=== PATIENT | female | born 1985 | race Caucasian/White ===

== ENCOUNTER → 2016-05-27 | Outpatient (CLI) | payer BC | LOC: LABMAIN 23:24 | PROVIDERS: ATTEND Physician Assistant | DX: Z32.00 Encounter for pregnancy test, result unknown (principal) | CPT/HCPCS: 36415; 84702 ==

== ENCOUNTER → 2016-05-29 | Outpatient (CLI) | payer BC | LOC: LABWHC1 12:26 | PROVIDERS: ATTEND Obstetrics & Gynecology | DX: N92.5 Other specified irregular menstruation (principal) | CPT/HCPCS: 36415; 84702 ==

== ENCOUNTER → 2016-06-12 | Outpatient (CLI) | payer BC | END | disposition home or self-care (01) | LOC: LABWHC1 13:33 | PROVIDERS: ATTEND Obstetrics & Gynecology | DX: O20.0 Threatened abortion (principal) | CPT/HCPCS: 36415; 84702 ==

== ENCOUNTER → 2016-06-14 | Outpatient (CLI) | payer BC | END | disposition home or self-care (01) | LOC: LABWHC1 08:54 | PROVIDERS: ATTEND Obstetrics & Gynecology | DX: O20.0 Threatened abortion (principal) | CPT/HCPCS: 36415; 84702 ==

== ENCOUNTER 2016-08-07 07:26 | Outpatient (CLI) | payer BC ==
[2016-08-07] MEDS ORDERED: HYDROCORTISONE SUCCINATE 100 MG/2 ML VIAL IV STA (07:45)
[2016-08-07] MEDS: LACTATED RINGERS 1,000 ML IV SCH ×2 (07:56→09:08)
[2016-08-07 07:59] VITALS: BP 101/67; PULSE 96; RESP 16; TEMP 97.7
[2016-08-07] MEDS ORDERED: PROMETHAZINE INJ 25 MG in SODIUM CHLORIDE 0.9% 50 ML IVPB ONE (08:00)
[2016-08-07] MEDS ORDERED: HYDROCORTISONE SUCCINATE 100 MG/2 ML VIAL IV ONE (12:00)
== END 2016-08-07 12:26 | disposition home or self-care (01) ==
LOC: FBPOP 07:26
PROVIDERS: ATTEND Obstetrics & Gynecology
DX: O26.92 Pregnancy related conditions, unspecified, second trimester (principal); Z3A.14 14 weeks gestation of pregnancy
CPT/HCPCS: 96376; 99214; 96360; 96361; 96375; J2550; J1720

== ENCOUNTER 2016-09-23 16:55 | Outpatient (CLI) | payer BC ==
[2016-09-23] MEDS ORDERED: LACTATED RINGERS 1,000 ML IV SCH (17:15)
[2016-09-23] MEDS ORDERED: BUTORPHANOL 1 MG/ML 1 ML VIAL IV PRN (17:36)
[2016-09-23] MEDS ORDERED: HYDROCORTISONE SUCCINATE 100 MG/2 ML VIAL IV SCH (18:00)
[2016-09-23 18:53] VITALS: BP 134/74; PULSE 95; RESP 18; TEMP 98.2
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
== END 2016-09-23 18:10 | disposition home or self-care (01) ==
LOC: FBPOP 16:55
PROVIDERS: ATTEND Obstetrics & Gynecology
DX: O26.92 Pregnancy related conditions, unspecified, second trimester (principal); Z3A.21 21 weeks gestation of pregnancy
CPT/HCPCS: 99214; 96360; 96375; 86900; 86901; 86850; J1720; J0595; 96374

== ENCOUNTER 2016-09-23 18:20 | Emergency (ER) | payer BC ==
[2016-09-23 18:30] VITALS: RESP 18; TEMP 97.8
[2016-09-23] MEDS ORDERED: MORPHINE SULFATE 4 MG/ML SYRINGE IV STA (18:44)
[2016-09-23] MEDS ORDERED: Rhogam IMMUNE GLOBULIN 1,500 UNIT/1 ML IM ONE (18:45)
--- NOTE | 2016-09-23 18:50 | ED ---
General Adult HPI - General Chief complaint: Fall Stated complaint: fall Time Seen by Provider: 09/23/16 18:33 Source: patient, RN notes reviewed Mode of arrival: wheelchair Limitations: no limitations - History of Present Illness Initial comments: Patient is a pleasant 31-year-old female presenting to the emergency department following a fall. Fall occurred around 3:30 in the morning. Patient stepped over a baby gait and missed the second step. Patient then fell down several steps. Patient did strike her head and lost consciousness. Patient believes loss of consciousness was less than a minute. Patient does have some discomfort of her posterior head. Patient has some discomfort bilateral ribs. Patient has noticed some mild brown vaginal discharge. Patient is approximately 21 weeks . Patient does have a history of adrenal insufficiency. Patient did vomit a couple of times this morning following the injury. Patient is 3 para 2. Case was discussed with Dr. pierre who was involved in the case to patient coming to the emergency department. She did speak with Dr. Rausch at [facility] who did recommend steroid dose as well as second steroid dose. She also does recommend patient received program. They did monitor the baby up in labor and delivery and did not feel patient needs further monitoring. - Related Data Home Medications Medication Instructions Recorded Confirmed Hydrocortisone [Cortef] 10 mg PO QAM 09/25/13 09/23/16 Ift-Yywn-Nwjxt Acid 1 tab PO DAILY 09/25/13 09/23/16 [-U Capsule (formulary)] Hydrocortisone [Cortef] 5 mg PO BID@1200,1500 09/23/16 09/23/16 Levothyroxine Sodium [Synthroid] 75 mcg PO DAILY 09/23/16 09/23/16 Previous Rx's Medication Instructions Recorded Acetaminophen-Codeine 300-30mg 1 each PO Q4H PRN #12 tablet 09/23/16 [Tylenol #3] Allergies Allergy/AdvReac Type Severity Reaction Status Date / Time venom-honey bee Allergy Severe Anaphylaxis Verified 09/23/16 18:27 [bee venom (honey bee)] Review of Systems ROS Statement: Those systems with pertinent positive or pertinent negative responses have been documented in the HPI. ROS Other: All systems not noted in ROS Statement are negative. Constitutional: Denies: fever Eyes: Denies: eye pain ENT: Denies: ear pain Respiratory: Denies: cough Cardiovascular: Reports: chest pain Endocrine: Denies: fatigue Gastrointestinal: Reports: vomiting (Resolved). Denies: abdominal pain Genitourinary: Reports: discharge (Mild light brown). Denies: dysuria Skin: Reports: other (Abrasion) Neurological: Reports: headache. Denies: weakness, confusion Past Medical History Past Medical History: Asthma, Thyroid Disorder Additional Past Medical History / Comment(s): adreanal insufficiency, right hydronephrosis History of Any Multi-Drug Resistant Organisms: None Reported Past Surgical History: Appendectomy, Cholecystectomy, Joint Replacement Additional Past Surgical History / Comment(s): right total shoulder Past Anesthesia/Blood Transfusion Reactions: Motion Sickness Past Psychological History: No Psychological Hx Reported Smoking Status: Never smoker Past Alcohol Use History: None Reported Past Drug Use History: None Reported - Past Family History Mother Family Medical History: Hypertension General Exam Limitations: no limitations General appearance: alert, in no apparent distress Head exam: Present: other (Mild tenderness posterior scalp) Eye exam: Present: normal appearance, PERRL, EOMI ENT exam: Present: normal oropharynx Neck exam: Present: normal inspection, full ROM. Absent: tenderness Respiratory exam: Present: normal lung sounds bilaterally, chest wall tenderness (Right anterior lower ribs and left posterior lower ribs) Cardiovascular Exam: Present: regular rate, normal rhythm GI/Abdominal exam: Present: soft, distended (Minimally distended suprapubic consistent with 21 weeks gravid state.). Absent: tenderness, guarding, rebound , rigid Extremities exam: Present: other (Arm abrasions) Back exam: Present: other (Tenderness left lower ribs. Lumbar abrasions without vertebral tenderness). Absent: vertebral tenderness Neurological exam: Present: alert, oriented X3, CN II-XII intact. Absent: motor sensory deficit Psychiatric exam: Present: normal affect, normal mood Skin exam: Present: abrasion (Arm abrasions. Right hip abrasion. Right anterior lower chest abrasions. Left posterior thorax abrasions.) Course Vital Signs 09/23/16 09/23/16 18:27 19:34 Temperature 97.8 F Pulse Rate 77 80 Respiratory 18 18 Rate Blood Pressure 128/73 131/71 O2 Sat by Pulse 100 99 Oximetry Medical Decision Making - Medical Decision Making Patient reevaluated and does appear well. Patient denies any vomiting since early this morning. Blood pressure is stable. Patient is comfortable with and does request discharge. Patient is updated on results and need for close follow -up. Patient has received program and will be discharged following second dose of Solu-Cortef. During conversation previously with Dr. Meyer she felt patient could be safely discharged if I did not find further findings. - Radiology Data Radiology results: image reviewed (Computed tomography scan of brain and chest x -ray reveal no acute process) Disposition Clinical Impression: Fall, Head injury Disposition: HOME SELF-CARE Condition: Stable Instructions: Head Injury (ED), Trauma During (ED) Additional Instructions: Please follow-up with Dr. Lopez tomorrow as well as your specialist at [facility]. Please return for weakness or vomiting, confusion, increased pain or difficulty in breathing, altered mental status, bleeding, pelvic pain, worsening symptoms or other concerns. Prescriptions: Acetaminophen-Codeine 300-30mg [Tylenol #3] 1 each PO Q4H PRN #12 tablet PRN Reason: Pain Referrals: Josafat Baldwin DO [Primary Care Provider] - 1-2 days Josafat Rust MD [STAFF PHYSICIAN] - 1-2 days Time of Disposition: 20:21
--- NOTE | 2016-09-23 19:07 | CT ---
EXAMINATION TYPE: CT brain wo con DATE OF EXAM: 09/23/2016 COMPARISON: NONE HISTORY: Fall today with head injury and LOC CT DLP: 742.2 mGycm. Automated Exposure Control for Dose Reduction was Utilized. TECHNIQUE: CT scan of the head is performed without contrast. FINDINGS: Ventricles and sulci appear normal. There is no mass effect nor midline shift. There is no sign of intracranial hemorrhage. The calvarium appears normal.. Conclusion Normal unenhanced head CT scan.
--- NOTE | 2016-09-23 19:08 | XR ---
EXAMINATION TYPE: XR chest 1V portable DATE OF EXAM: 09/23/2016 COMPARISON: NONE HISTORY: Chest pain TECHNIQUE: Single frontal view of the chest is obtained. FINDINGS: Heart and mediastinum are normal. Lungs are clear. Diaphragm is normal. There is a right s houlder prosthesis. IMPRESSION: Normal chest
[2016-09-23 19:35] VITALS: PULSE 80
[2016-09-23] MEDS ORDERED: ACET/COD 300 MG/30 MG STARTER PACK 6 TAB BTL PO STA (20:20)
[2016-09-23] MEDS ORDERED: HYDROCORTISONE SUCCINATE 100 MG/2 ML VIAL IV ONE ×2 (20:40→20:45)
[2016-09-23 20:46] VITALS: BP 130/88
== END 2016-09-23 20:46 | disposition home or self-care (01) ==
LOC: EC 18:20
DX: S06.9X1A Unspecified intracranial injury with loss of consciousness of 30 minutes or less, initial encounter (principal); W10.9XXA Fall (on) (from) unspecified stairs and steps, initial encounter; O9A.212 Injury, poisoning and certain other consequences of external causes complicating pregnancy, second trimester; Z3A.21 21 weeks gestation of pregnancy; Y92.009 Unspecified place in unspecified non-institutional (private) residence as the place of occurrence of the external cause; O99.282 Endocrine, nutritional and metabolic diseases complicating pregnancy, second trimester; E27.40 Unspecified adrenocortical insufficiency; Z79.899 Other long term (current) drug therapy; Z91.030 Bee allergy status
CPT/HCPCS: 71010; 70450; 99284; 96374; 96375; 96372; J2791; J2270; J1720

== ENCOUNTER 2016-11-01 14:36 | Inpatient (IN) | payer BC ==
[2016-11-01 15:04] VITALS: RESP 16
[2016-11-01 15:04] LABS: Appearance,Urine Clear (Clear); Bilirubin,Urine Negative (Negative); Glucose,Urine (UA) Negative (Negative); Ketones,Urine 1+ (Negative); Leukocyte Esterase,Urine Negative (Negative); Mucus,Urine Rare /hpf; Nitrite,Urine Negative (Negative); PH, Urine 7.5 (5.0-8.0); Particle Count 1396; Protein,Urine Negative (Negative); RBC,Urine >182 /hpf (0-5); Specific Gravity,Urine 1.009 (1.001-1.035); Squamous Epithelial Cell,Urine 1 /hpf (0-4); UA Billing (MACRO vs. MICRO) MICRO; Urobilinogen,Urine <2.0 mg/dL (<2.0); WBC,Urine 11 /hpf (0-5)
[2016-11-01] MEDS ORDERED: ONDANSETRON 4 MG/2 ML VIAL IVP STA (15:34)
[2016-11-01] MEDS ORDERED: BUTORPHANOL 1 MG/ML 1 ML VIAL IV PRN (15:34)
[2016-11-01] MEDS: LACTATED RINGERS 1,000 ML IV SCH ×4 (15:45→19:53)
[2016-11-01 16:09] LABS: Anion Gap 9 mmol/L; Blood Urea Nitrogen 5 mg/dL (7-17); Carbon Dioxide 23 mmol/L (22-30); Chloride 105 mmol/L (98-107); Non-African American GFR(MDRD) >60 (>60 ml/min/1.73 sqM); Potassium 3.7 mmol/L (3.5-5.1); Sodium 137 mmol/L (137-145)
[2016-11-01 16:13] LABS: Basophils % (A) 0 %; CH 32.8; CHCM 34.1; Eosinophils % (A) 0 %; HCT 40.4 % (34.0-46.0); HDW 2.87; HGB 13.3 gm/dL (11.4-16.0); Luc # (Auto) 0.13; Luc % (Auto) 1; Lymphocytes # (A) 0.9 k/uL (1.0-4.8); Lymphocytes % (A) 10 %; MCH 31.9 pg (25.0-35.0); MCHC 32.9 g/dL (31.0-37.0); MCV 96.7 fL (80.0-100.0); Mean Platelet Volume 7.6; Monocytes # (A) 0.2 k/uL (0-1.0); Monocytes % (A) 3 %; Neutrophils # (A) 7.9 k/uL (1.3-7.7); Neutrophils % (A) 86 %; RBC 4.18 m/uL (3.80-5.40); RDW 14.1 % (11.5-15.5); WBC 9.2 k/uL (3.8-10.6); WBC (Perox) 9.25
[2016-11-01] MEDS ORDERED: HYDROCORTISONE SUCCINATE 100 MG/2 ML VIAL IV STA (16:17)
[2016-11-01] MEDS ORDERED: NALOXONE 0.4 MG/ML 1 ML VIAL IV PRN (18:06)
--- NOTE | 2016-11-01 18:17 | P.HPOB ---
History of Present Illness H&P Date: 11/01/16 Chief Complaint: Acute nausea and vomiting, nephrolithiasis The patient is a 31-year-old 3 para 110 to admitted through triage at approximately 26 weeks of gestation by good dating parameters. She has a long- standing history of known adrenal insufficiency for which she takes daily steroid doses. In times of stress, she is often required to use stress dosing of IV steroids. She has a history of nephrolithiasis and is currently in the process of passing a stone on the right side. The urine is consistent with this findings with visible blood as well as microscopic findings. She reports her flank pain on the right is traveling and is now currently more on her side. She has been unable to tolerate liquids over the last 2 days with continuous nausea and vomiting. Urinalysis demonstrates fairly significant dehydration as well. She denies any concerns though she does feel as if she is having some small and random contractions which is borne out on the monitor strip. Thus far in triage, she has received 3 L of lactated Ringer's as well as a dose of Zofran and an IV dose of Solu-Cortef. She reports that she is feeling somewhat better though she still has fairly significant pain and confined to a position. Obstetrical history: 3 para 03/11/2001 with 1 term vaginal delivery followed by one delivery secondary to rupture of membranes. This has been relatively uncomplicated to this point though she does carry the diagnosis of adrenal insufficiency as noted above. Her record is not currently on the chart but labs have been drawn and are normal. She is additionally, managed with maternal medicine at [facility]. Gynecologic history: Unremarkable. Review of Systems Review of systems is confined to history of present illness. Past Medical History Past Medical History: Asthma, Thyroid Disorder Additional Past Medical History / Comment(s): adreanal insufficiency, right hydronephrosis History of Any Multi-Drug Resistant Organisms: None Reported Past Surgical History: Appendectomy, Cholecystectomy, Joint Replacement Additional Past Surgical History / Comment(s): right total shoulder Past Anesthesia/Blood Transfusion Reactions: Motion Sickness Smoking Status: Never smoker - Past Family History Mother Family Medical History: Hypertension Medications and Allergies Home Medications Medication Instructions Recorded Confirmed Type Hydrocortisone [Cortef] 10 mg PO QAM 09/25/13 11/01/16 History Vnf-Qyrq-Kukss Acid 1 tab PO DAILY 09/25/13 11/01/16 History [-U Capsule (formulary)] Hydrocortisone [Cortef] 5 mg PO BID@1200,1500 09/23/16 11/01/16 History Levothyroxine Sodium [Synthroid] 75 mcg PO DAILY 09/23/16 11/01/16 History Allergies Allergy/AdvReac Type Severity Reaction Status Date / Time venom-honey bee Allergy Severe Anaphylaxis Verified 11/01/16 14:42 [bee venom (honey bee)] Exam - Vital Signs Vital signs: Vital Signs Temp Pulse Resp BP Pulse Ox 11/01/16 14:45 97.6 F 105 H 16 116/80 100 Intake and Output 11/01/16 11/01/16 11/01/16 06:59 14:59 22:59 Other: Weight 57.379 kg Patient Weight 11/02/16 06:59 Weight 57.379 kg In general, this is a well-developed, well-nourished white female who appears to be somewhat uncomfortable and pale. Her heart has a regular rhythm and rate without murmur. Her lungs are clear to auscultation bilaterally in all kelly. Her abdomen is gravid, nondistended, has normal active bowel sounds, is soft, nontender, without any palpable masses aside from the uterine fundus. She does have some right flank and side tenderness. Her extremities without any cyanosis , clubbing, or edema and are nontender to palpation bilaterally. Digital cervical examination is deferred at this time. Results Result Diagrams: 11/01/16 15:45 11/01/16 15:45 Abnormal Lab Results - Last 24 Hours (Table) 11/01/16 11/01/16 11/01/16 Range/Units 14:45 15:45 15:45 Neutrophils # 7.9 H (1.3-7.7) k/uL Lymphocytes # 0.9 L (1.0-4.8) k/uL BUN 5 L (7-17) mg/dL Creatinine 0.46 L (0.52-1.04) mg/dL Urine Ketones 1+ H (Negative) Urine Blood Large H (Negative) Urine RBC >182 H (0-5) /hpf Urine WBC 11 H (0-5) /hpf Urine Mucus Rare H (None) /hpf Assessment and Plan (1) 26 weeks gestation of Status: Acute (2) Nausea & vomiting Status: Acute (3) Nephrolithiasis Status: Acute (4) Adrenal insufficiency Status: Acute Plan: The patient is admitted for 23 hour observation. She'll be aggressively rehydrated and provided a Dilaudid IOS DEVELOPER for pain control as she passes the stone. Additionally have ordered further doses of Solu-Cortef 100 mg intravenously every 8 hours. She will be allowed clear liquid diet. Additionally, Zofran has been ordered for nausea. The goal would be to have her tolerating liquids and able to control her pain at home with oral pain medications by the morning at which time she could be discharged home. Close observation will continue to be carried out.
[2016-11-01] MEDS: HYDROmorphone PCA 5 MG/25 ML SYRINGE IV PRN ×2 (18:25→22:48)
[2016-11-01 18:42] VITALS: BMI 21.2
[2016-11-01] MEDS: HYDROCORTISONE SUCCINATE 100 MG/2 ML VIAL IV SCH (20:09)
[2016-11-01] MEDS: PROMETHAZINE SUPPOSITORY 25 MG SUPP RECTAL PRN (20:09)
[2016-11-02] MEDS: LACTATED RINGERS 1,000 ML IV SCH ×3 (00:56→20:42)
[2016-11-02] MEDS: ONDANSETRON 4 MG/2 ML VIAL IVP PRN ×3 (03:08→15:21)
[2016-11-02] MEDS: HYDROCORTISONE SUCCINATE 100 MG/2 ML VIAL IV SCH ×3 (03:08→19:23)
[2016-11-02] MEDS: HYDROmorphone PCA 5 MG/25 ML SYRINGE IV PRN ×3 (05:45→18:18)
[2016-11-02] MEDS: BETAMET ACET-BETAMETH SOD PHOS 6 MG/ML VIAL IM SCH (06:21)
[2016-11-02] MEDS: TERBUTALINE 1 MG/ML VIAL SQ STA ×4 (06:25→08:01)
[2016-11-02] MEDS: PROMETHAZINE SUPPOSITORY 25 MG SUPP RECTAL PRN ×3 (06:26→19:58)
--- NOTE | 2016-11-02 10:47 | P.PN ---
Subjective The patient continues to report to the intermittent nausea and vomiting. Pain is improved from initial presentation but still fairly significant and bleeding , she feels, to the nausea and vomiting. She had an episode of significant contractions this morning resulting in 3 doses of terbutaline which have quieted the contractions. She does continue to report occasional contractions which are far less uncomfortable but do increase of when she is up and using the bathroom. She continues to have frankly bloody urine but feels as though the pain from her stone has migrated from her side closer to the front along the track of the ureter. Objective - Vital Signs Vital signs: Vital Signs Temp 97.4 F L 11/02/16 00:00 Pulse 87 11/02/16 00:00 Resp 16 11/02/16 00:00 BP 109/71 11/02/16 00:00 Pulse Ox 99 11/01/16 18:06 Intake & Output 11/01/16 11/02/16 11/02/16 18:59 06:59 18:59 Intake Total 1040 Output Total 400 Balance 640 Weight 58.06 kg Intake: Intake, IV Titration 1000 Amount Lactated Ringers 1,000 ml 1000 @ 150 mls/hr IV .Q6H40M [facility] Rx#:[id number] Other 40 Output: Urine 400 - Exam The abdomen is nondistended, soft, essentially nontender with some mild tenderness in the right lower quadrant along the track of the ureter. The only masses uterine fundus. Her extremities are without any cyanosis, clubbing, or edema and are nontender to palpation. Digital cervical examination is deferred at this time as she was checked early this morning at which time the nursing staff called her closed, 50%, and -2-3. - Labs CBC & Chem 7: 11/01/16 15:45 11/01/16 15:45 Labs: Abnormal Lab Results - Last 24 Hours (Table) 11/01/16 11/01/16 11/01/16 Range/Units 14:45 15:45 15:45 Neutrophils # 7.9 H (1.3-7.7) k/uL Lymphocytes # 0.9 L (1.0-4.8) k/uL BUN 5 L (7-17) mg/dL Creatinine 0.46 L (0.52-1.04) mg/dL Urine Ketones 1+ H (Negative) Urine Blood Large H (Negative) Urine RBC >182 H (0-5) /hpf Urine WBC 11 H (0-5) /hpf Urine Mucus Rare H (None) /hpf Assessment and Plan (1) 26 weeks gestation of Status: Acute (2) Nausea & vomiting Status: Acute (3) Nephrolithiasis Status: Acute (4) Adrenal insufficiency Status: Acute Plan: As she now is threatening with labor/contractions, the patient will continue to remain in the hospital for ongoing treatment. She continues with anti-emetics as well as the DIRECTOR OF STRATEGIC SOURCING for pain. She will continue to have continuous contraction monitoring with occasional heart tone monitoring. The goal of advancing to a regular diet and the patient's ability to tolerate the at least liquids by mouth as well as oral pain medications remains in place but is not close at this time. I will add SCDs as she remains relatively bedbound. Additionally I will allow her to try a regular diet if she chooses. I do not see a need at this time for antibiotic prophylaxis. Should any significant degree of contractions resume, she may be a candidate for transfer to a tertiary care center, likely [facility].
[2016-11-03] MEDS: LACTATED RINGERS 1,000 ML IV SCH ×4 (02:32→16:15)
[2016-11-03] MEDS: HYDROmorphone PCA 5 MG/25 ML SYRINGE IV PRN ×3 (03:05→16:22)
[2016-11-03] MEDS: HYDROCORTISONE SUCCINATE 100 MG/2 ML VIAL IV SCH ×3 (03:21→19:11)
[2016-11-03] MEDS: PROMETHAZINE SUPPOSITORY 25 MG SUPP RECTAL PRN ×3 (03:27→19:12)
[2016-11-03] MEDS: ONDANSETRON 4 MG/2 ML VIAL IVP PRN (05:46)
[2016-11-03] MEDS: BETAMET ACET-BETAMETH SOD PHOS 6 MG/ML VIAL IM SCH (06:28)
--- NOTE | 2016-11-03 10:16 | P.PN ---
Subjective The patient reports that she feels fairly significantly improved from yesterday though she has still only tolerated a small amount of food. Her pain has improved to some extent but is still present. Her urine output has increased to some extent as well. She does continue to feel contractions which are occasionally uncomfortable but remained very random in nature. She does not feel that she can tolerate oral pain medications yet. Objective - Vital Signs Vital signs: Vital Signs Temp 97.5 F L 11/03/16 03:30 Pulse 86 11/03/16 03:30 Resp 16 11/03/16 03:30 BP 121/63 11/03/16 03:30 Pulse Ox 99 11/01/16 18:06 Intake & Output 11/02/16 11/03/16 11/03/16 18:59 06:59 18:59 Intake Total 300 2350 Output Total 400 750 Balance -100 1600 Intake: Intake, IV Titration 2050 Amount Lactated Ringers 1,000 ml 2050 @ 150 mls/hr IV .Q6H40M [facility] Rx#:[id number] Oral 300 300 Output: Urine 400 750 Other: # Voids 1 1 - Exam In general, this is a well-developed, well-nourished white female who appears pale but otherwise without distress. Her abdomen is gravid, nondistended, soft , nontender, and without any palpable masses aside from uterine fundus. Her extremities are without any cyanosis, clubbing, or edema and are nontender to palpation. Her cervix was rechecked by the nursing staff last night secondary to contractions and was found to be approximately 1 cm, thick, and high. - Labs CBC & Chem 7: 11/01/16 15:45 11/01/16 15:45 Assessment and Plan (1) 26 weeks gestation of Status: Acute (2) Nausea & vomiting Status: Acute (3) Nephrolithiasis Status: Acute (4) Adrenal insufficiency Status: Acute Plan: The plan continues as previously outlined. We will see if she is able to tolerate enough by mouth to consider stopping the BUSINESS CONTROL SPECIALIST in favor of oral pain medications. Should this come to pass, consideration could be given to discharge to home. She will have a cervical check at my hands prior to discharge. I would anticipate this to be most likely tomorrow rather than today. Continue aggressive IV hydration in order to flush out the kidney stone.
--- NOTE | 2016-11-03 13:29 | P.MSEPDOC ---
Presenting Problems - Arrival Data Date of Arrival on Unit: 11/01/16 Time of Arrival on Unit: 14:40 Mode of Transport: Ambulatory - Complaint OB-Reason for Admission/Chief Complaint: Signs/Symptoms UTI Medical History - Information : 3 Para: 2 Term: 1 : 1 Abortions: Spontaneous or Elective: 0 Number of Living Children: 2 - Gestational Age Expected Date of Delivery: 02/09/17 Gestational Age by YARA (wks/days): 26 Weeks and 0 Days Review of Systems - Review of Systems Constitutional: Recent weight loss Breast: No problems ENT: No problems Cardiovascular: No problems Respiratory: No problems Gastrointestinal: No problems Genitourinary: No problems Musculoskeletal: No problems Neurological: No problems Skin: No problems Comment: nausea,vomitting, palor Vital Signs - Temperature Temperature: 97.5 F Temperature Source: Temporal Artery Scan - Pulse Right Pulse Rate: 86 Pulse Assessment Method: Automatic Cuff - Respirations Respiratory Rate: 16 Oxygen Delivery Method: Room Air - Blood Pressure Right Arm Blood Pressure: 121/63 Blood Pressure Mean: 82 Blood Pressure Source: Automatic Cuff Medical Screen Scoring (Pre) - Cervical Exam Dilation: Exam Deferred - Uterine Contractions Frequency: < 36 weeks = 6 Duration: > 40 seconds = 2 Intensity: N/A - Maternal Vital Signs Maternal Temperature: N/A Maternal Blood Pressure: N/A Signs of Preeclampsia: N/A Maternal Respirations: N/A - Maternal Trauma Maternal Trauma: N/A - Assessment Baseline FHR: 150 Heart Rate - NICHD Category: Category I (Normal) = 0 Position: N/A Station: N/A - Total Score Total Score (Pre): 8 - Level of Risk Level of Risk: Medium (6-9) Disposition - Disposition OB Disposition: Admit, Triage I agree with the RN Medical Screening Exam: Yes Risk & Benefit of care provided described in d/c instruction: Yes Diagnosis: CALCULUS OF KIDNEY
[2016-11-04] MEDS: LACTATED RINGERS 1,000 ML IV SCH ×2 (00:59→06:51)
[2016-11-04 01:27] LABS: Basophils % (A) 0 %; CH 32.4; CHCM 33.4; Eosinophils % (A) 0 %; HCT 30.6 % (34.0-46.0); HDW 2.83; Luc # (Auto) 0.06; Luc % (Auto) 1; Lymphocytes # (A) 0.5 k/uL (1.0-4.8); Lymphocytes % (A) 4 %; MCH 31.6 pg (25.0-35.0); MCHC 32.3 g/dL (31.0-37.0); MCV 97.8 fL (80.0-100.0); Mean Platelet Volume 7.8; Monocytes # (A) 0.3 k/uL (0-1.0); Monocytes % (A) 2 %; Neutrophils # (A) 12.1 k/uL (1.3-7.7); Neutrophils % (A) 93 %; RBC 3.13 m/uL (3.80-5.40); RDW 13.9 % (11.5-15.5); WBC (Perox) 13.13
[2016-11-04] MEDS: HYDROmorphone PCA 5 MG/25 ML SYRINGE IV PRN ×2 (01:30→06:31)
[2016-11-04 01:39] LABS: HGB 9.9 gm/dL (11.4-16.0)
[2016-11-04 01:40] LABS: ALT 31 U/L (9-52); AST 27 U/L (14-36); Alkaline Phosphatase 50 U/L (38-126); Anion Gap 9 mmol/L; Blood Urea Nitrogen 7 mg/dL (7-17); Calcium 8.6 mg/dL (8.4-10.2); Carbon Dioxide 24 mmol/L (22-30); Chloride 103 mmol/L (98-107); Glucose 145 mg/dL (74-99); Non-African American GFR(MDRD) >60 (>60 ml/min/1.73 sqM); Potassium 3.4 mmol/L (3.5-5.1); Sodium 136 mmol/L (137-145); Total Bilirubin 0.1 mg/dL (0.2-1.3); Total Protein 5.2 g/dL (6.3-8.2)
[2016-11-04] MEDS: PROMETHAZINE SUPPOSITORY 25 MG SUPP RECTAL PRN (03:33)
[2016-11-04] MEDS: HYDROCORTISONE SUCCINATE 100 MG/2 ML VIAL IV SCH (03:33)
[2016-11-04 03:52] VITALS: BP 122/68; PULSE 91; TEMP 97.9
[2016-11-04] MEDS ORDERED: LORazepam 2 MG/ML SYRINGE IV STA (05:59)
--- NOTE | 2016-11-04 06:16 | P.TRANS ---
Providers Date of admission: 11/01/16 17:49 Expected date of discharge: 11/04/16 Attending physician: Josafat Rust Primary care physician: Stated None - Discharge Diagnosis(es) (1) 26 weeks gestation of Current Visit: Yes Status: Acute (2) Nausea & vomiting Current Visit: Yes Status: Acute (3) Nephrolithiasis Current Visit: Yes Status: Acute (4) Adrenal insufficiency Current Visit: No Status: Acute Hospital Course: The patient is a 31-year-old 3 para [birth year]/11/2001 currently at 26 and one sevenths weeks by good dating parameters. She has a long-standing history of chronic adrenal insufficiency for which she has had comanagement in previous pregnancies and this with maternal medicine at [facility]. She has had cervical lengths followed secondary to her previous delivery at 35+ weeks at which time she had spontaneous rupture of membranes. This as well as her previous had been complicated by significant nausea and vomiting as well as subsequent dehydration which has on several occasions required admission for rehydration as well as stress dose steroid management. For this particular admission, she presented with 2 days of chronic nausea and vomiting as well as dehydration secondary to ongoing nephrolithiasis for which she is in the process of passing a right kidney stone. She was admitted for aggressive rehydration and pain management while the stone passed. While in the hospital she has received stress dose steroids with Solu-Cortef 100 mg being given initially twice 4 hours apart and has been followed by Q8 hour dosing. A TECHNICAL PRODUCER has been in place for the entirety of her admission as well. She has been able to occasionally tolerate liquids and minimal solids but not to the extent that she could tolerate oral pain medications. Over the course of her 3 day admission, she began to feel better but, as noted above, has never tolerated solids to the extent of changing to oral pain control. In the last 12-24 hours, she has begun to feel significantly worse with some tachycardia as well as a recent elevation in blood pressure. She is now complaining of increasing edema and her baseline weight increased from 126 pounds at admission to 151 pounds recently. Given her early gestation as well as the complexity of her medical picture, I spoke with maternal- medicine at [facility] who is unable to accept transfer at this time secondary to the hospital being full. She recommended that I speak with maternal medicine that [facility] which I have done. They have accepted transfer of the patient for further ongoing management. The patient will be transferred by ambulance to [facility] where care has been accepted by Dr. Aime Hernandez in the Department of maternal medicine. While in the hospital, she has had occasional runs of contractions necessitating checking of her cervix which most recently was reported as 1, thick, and high. Contractions at this time remain irregular. The patient did, during this admission, received 2 doses of betamethasone 12.5 mg intramuscularly 24 hours apart. No antibiotic prophylaxis has been used. Procedures: #1. IV hydration #2. IV pain control #3. Stress-dose steroid administration # 4. Observation Patient Condition at Discharge: Stable Plan - Transfer Summary Transfer Medications: Active Medications Generic Name Dose Route Start Last Admin Trade Name Freq PRN Reason Stop Dose Admin Butorphanol Tartrate 1 mg 11/01/16 15:34 11/01/16 15:54 Stadol IV 1 mg Q2HR PRN Administration Pain Hydrocortisone Sodium Succinate 100 mg 11/02/16 00:00 11/04/16 03:33 Solu-Cortef IV 100 mg Q8HR JOSELUIS Administration Hydromorphone HCl 5 mg 11/01/16 18:06 11/04/16 01:30 Dilaudid Child And Family Therapist IV 5 mg PER PROTOCOL PRN Administration Pain Control Protocol Lactated Ringer's 1,000 mls @ 20 mls/hr 11/01/16 18:15 11/04/16 00:59 Lactated Ringers IV Not Given .Q24H JOSELUIS Naloxone HCl 0.2 mg 11/01/16 18:06 Narcan IV Q2M PRN Opioid Reversal Ondansetron HCl 4 mg 11/01/16 18:06 11/03/16 05:46 Zofran IVP 4 mg Q6HR PRN Administration Nausea And Vomiting Promethazine HCl 25 mg 11/01/16 19:57 11/04/16 03:33 Phenergan RECTAL 25 mg TID PRN Administration Nausea And Vomiting Discharge Disposition: OTHER INSTITUTION NOT DEFINED
== END 2016-11-04 07:19 | disposition short-term general hospital (02) | DRG 781 ==
LOC: FBPOP 14:36 → 4FBP 17:49 → OBSVTOIN 17:49
PROVIDERS: ADMIT Obstetrics & Gynecology; ATTEND Obstetrics & Gynecology
DX: O26.832 Pregnancy related renal disease, second trimester (principal); O60.02 Preterm labor without delivery, second trimester; E27.40 Unspecified adrenocortical insufficiency; E86.0 Dehydration; N20.0 Calculus of kidney; O99.282 Endocrine, nutritional and metabolic diseases complicating pregnancy, second trimester; O12.02 Gestational edema, second trimester; O21.2 Late vomiting of pregnancy; O99.512 Diseases of the respiratory system complicating pregnancy, second trimester; Z3A.26 26 weeks gestation of pregnancy; J45.909 Unspecified asthma, uncomplicated; E07.9 Disorder of thyroid, unspecified; Z79.52 Long term (current) use of systemic steroids; Z79.899 Other long term (current) drug therapy; Z87.442 Personal history of urinary calculi
CPT/HCPCS: 80051; 80053; 81001; 82565; 82731; 84520; 85025; 96374; 96375; 99214

== ENCOUNTER 2017-06-12 17:48 | Emergency (ER) | payer BC, OTHER ==
[2017-06-12 17:58] VITALS: BP 149/93; PULSE 99; RESP 18; TEMP 98.3
[2017-06-12] MEDS ORDERED: SODIUM CHLORIDE 0.9% 1,000 ML IV STA (18:13)
[2017-06-12] MEDS ORDERED: RX INFO: IV CONTRAST WAS GIVEN 1 EACH MISC MISCELLANE PRN (18:13)
[2017-06-12] MEDS ORDERED: ACETAMINOPHEN TAB 500 MG TAB PO STA (18:13)
[2017-06-12 18:21] LABS: Glucose,Whole Blood 100 mg/dL (75-99)
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
[2017-06-12 18:40] LABS: Basophils % (A) 0 %; Eosinophils # (A) 0.1 k/uL (0-0.7); Eosinophils % (A) 2 %; HCT 39.8 % (34.0-46.0); HGB 13.2 gm/dL (11.4-16.0); Lymphocytes % (A) 22 %; MCH 30.5 pg (25.0-35.0); MCHC 33.3 g/dL (31.0-37.0); MCV 91.5 fL (80.0-100.0); Mean Platelet Volume 6.9; Monocytes # (A) 0.2 k/uL (0-1.0); Monocytes % (A) 5 %; Neutrophils # (A) 3.3 k/uL (1.3-7.7); Neutrophils % (A) 70 %; Platelet Count 293 k/uL (150-450); RBC 4.35 m/uL (3.80-5.40); RDW 13.5 % (11.5-15.5); WBC 4.7 k/uL (3.8-10.6)
[2017-06-12] MEDS ORDERED: ONDANSETRON 4 MG/2 ML VIAL IVP STA (18:44)
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
[2017-06-12 18:50] LABS: ALT 22 U/L (9-52); AST 31 U/L (14-36); Alcohol <10 mg/dL; Alkaline Phosphatase 65 U/L (38-126); Amylase 36 U/L (30-110); Anion Gap 15 mmol/L; Blood Urea Nitrogen 10 mg/dL (7-17); Calcium 9.3 mg/dL (8.4-10.2); Carbon Dioxide 22 mmol/L (22-30); Chloride 105 mmol/L (98-107); Glucose 100 mg/dL (74-99); Lipase 28 U/L (23-300); Potassium 3.9 mmol/L (3.5-5.1); Sodium 142 mmol/L (137-145); Total Bilirubin 0.3 mg/dL (0.2-1.3); Total Protein 6.7 g/dL (6.3-8.2)
--- NOTE | 2017-06-12 18:50 | XR ---
EXAMINATION: XR chest 1V portable DATE AND TIME: 06/12/2017 6:24 PM ORDERING PROVIDER: Denys Goldstein DO CLINICAL INDICATION: trauma TECHNIQUE: PA and lateral COMPARISON: 09/23/2016 DESCRIPTION: Right shoulder prosthesis is intact. The skeletal structures are intact without focal findings. The s oft tissues are unremarkable. The lungs are clear. The pleural spaces are negative. The cardiac silhouette is not enlarged. IMPRESSION: NO ACUTE PROCESS.
[2017-06-12 18:54] LABS: INR 1.1 (<1.2); Partial Thromboplastin Time 26.6 sec (22.0-30.0); Prothrombin Time 10.3 sec (9.0-12.0)
[2017-06-12 18:56] LABS: Appearance,Urine Clear (Clear); Bacteria,Urine Occasional /hpf; Bilirubin,Urine Negative (Negative); Blood,Urine Moderate (Negative); Color,Urine Light Yellow; Glucose,Urine (UA) Negative (Negative); Ketones,Urine Negative (Negative); Leukocyte Esterase,Urine Small (Negative); Nitrite,Urine Negative (Negative); PH, Urine 5.5 (5.0-8.0); Protein,Urine Negative (Negative); RBC,Urine 45 /hpf (0-5); Specific Gravity,Urine 1.008 (1.001-1.035); Squamous Epithelial Cell,Urine 6 /hpf (0-4); Urobilinogen,Urine <2.0 mg/dL (<2.0); WBC,Urine 5 /hpf (0-5)
[2017-06-12 19:00] LABS: Amphetamine Screen,Urine Not Detected (NotDetected); Barbiturate Screen,Urine Not Detected (NotDetected); Benzodiazepines Screen,Urine Detected (NotDetected); Cocaine Screen,Urine Not Detected (NotDetected); Methadone Screen, Urine Not Detected (NotDetected); Opiate Screen,Urine Detected (NotDetected); Oxycodone Screen, Urine Detected (NotDetected); Phencyclidine Screen,Urine Not Detected (NotDetected); Tricyclic Antidepressant,Urine Not Detected (NotDetected); Urn Cannabinoid Scrn Not Detected (NotDetected)
[2017-06-12 19:00] LABS: Creatine Kinase 32 U/L (30-135)
[2017-06-12 19:13] LABS: Creatine Kinase MB 0.2 ng/mL (0.0-2.4); Troponin I <0.012 ng/mL (0.000-0.034)
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
== END 2017-06-12 20:42 | disposition home or self-care (01) ==
LOC: EC 17:48
DX: S06.0X0A Concussion without loss of consciousness, initial encounter (principal); S30.1XXA Contusion of abdominal wall, initial encounter; E07.9 Disorder of thyroid, unspecified; Z86.03 Personal history of neoplasm of uncertain behavior; Z79.899 Other long term (current) drug therapy; Z91.030 Bee allergy status; V47.5XXA Car driver injured in collision with fixed or stationary object in traffic accident, initial encounter; Y99.0 Civilian activity done for income or pay
CPT/HCPCS: 36415; 93005; 86900; 86901; 80053; 82150; 82550; 82553; 83605; 83690; 84484; 85025; 85610; 85730; 86850; 81001; 81025; 80306; 80320; 72170; 71045; 72125; 70450; 71260; 74177; 99285; 96374; 96361 ×2; J2405; Q9967

== ENCOUNTER → 2017-06-14 | Outpatient (CLI) | payer OTHER ==
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
== END | disposition home or self-care (01) ==
LOC: RADXRMAIN 14:26
PROVIDERS: ATTEND Emergency Medicine
DX: M25.511 Pain in right shoulder (principal); Z96.611 Presence of right artificial shoulder joint

== ENCOUNTER → 2017-08-22 | Outpatient (CLI) | payer BC ==
[2017-08-22 16:45] LABS: Basophils % (A) 1 %; Eosinophils % (A) 1 %; HCT 40.6 % (34.0-46.0); HGB 13.4 gm/dL (11.4-16.0); Lymphocytes # (A) 1.3 k/uL (1.0-4.8); Lymphocytes % (A) 34 %; MCH 30.8 pg (25.0-35.0); MCHC 32.9 g/dL (31.0-37.0); MCV 93.6 fL (80.0-100.0); Mean Platelet Volume 7.1; Monocytes # (A) 0.2 k/uL (0-1.0); Monocytes % (A) 5 %; Neutrophils # (A) 2.2 k/uL (1.3-7.7); Neutrophils % (A) 56 %; Platelet Count 284 k/uL (150-450); RBC 4.34 m/uL (3.80-5.40); WBC 3.8 k/uL (3.8-10.6)
[2017-08-22 16:56] LABS: INR 1.2 (<1.2); Partial Thromboplastin Time 28.6 sec (22.0-30.0); Prothrombin Time 11.5 sec (9.0-12.0)
[2017-08-22 19:12] LABS: ALT 29 U/L (9-52); AST 21 U/L (14-36); Albumin 4.1 g/dL (3.5-5.0); Alkaline Phosphatase 67 U/L (38-126); Anion Gap 10 mmol/L; Blood Urea Nitrogen 15 mg/dL (7-17); C Reactive Protein <5.0 mg/L (<10.0); Calcium 9.5 mg/dL (8.4-10.2); Carbon Dioxide 28 mmol/L (22-30); Chloride 101 mmol/L (98-107); Cholesterol 91 mg/dL (<200); Creatine Kinase 35 U/L (30-135); Glucose 103 mg/dL (74-99); HDL Cholesterol 61 mg/dL (40-60); LDL Cholesterol,Calculated 15 mg/dL (0-99); Potassium 4.3 mmol/L (3.5-5.1); Sodium 139 mmol/L (137-145); Total Bilirubin 0.4 mg/dL (0.2-1.3); Total Protein 6.8 g/dL (6.3-8.2); Triglycerides 73 mg/dL (<150); Uric Acid 3.3 mg/dL (3.7-7.4)
[2017-08-22 19:26] LABS: T4, Free (Free Thyroxine) 0.66 ng/dL (0.78-2.19)
[2017-08-22 21:00] LABS: Erythrocyte Sedimentation Rate 2 mm/hr (0-20)
[2017-08-23 01:45] LABS: Iron Saturation 19.71 (12.00-45.00); Rheumatoid Factor <4 IU/mL (0-15)
[2017-08-23 01:51] LABS: Vitamin D 25 Hydroxy 25.3 ng/mL (30.0-100.0)
[2017-08-23 02:01] LABS: Parathyroid Hormone Intact 76.2 pg/mL (14.0-72.0)
[2017-08-23 11:16] LABS: Protein C Antigen 93 % (72-160)
[2017-08-23 11:17] LABS: HLA B27 NEGATIVE
[2017-08-23 11:25] LABS: Protein C (Activity) 98 % (71-138)
[2017-08-23 13:50] LABS: Protein S Antigen 77 % (50 - 140)
[2017-08-23 16:09] LABS: Angiotensin-1 Converting Enz. 27 U/L (8-52)
== END | disposition home or self-care (01) ==
LOC: LABWHC1 15:35
PROVIDERS: ATTEND Family Medicine
DX: Z00.00 Encounter for general adult medical examination without abnormal findings (principal); R53.83 Other fatigue; R31.9 Hematuria, unspecified; K02.9 Dental caries, unspecified; R58 Hemorrhage, not elsewhere classified; M25.50 Pain in unspecified joint; E27.40 Unspecified adrenocortical insufficiency; R23.3 Spontaneous ecchymoses; E55.9 Vitamin D deficiency, unspecified
CPT/HCPCS: 36415; 80053; 80061; 82164; 82306; 82533; 82550; 82585; 82607; 82728; 83540; 83550; 83970; 84439; 84443; 84550; 85025; 85240; 85245; 85246; 85302; 85303; 85305; 85306; 85610; 85652; 85730; 86140; 86431; 86812; 87077; 87086; 87186

== ENCOUNTER → 2017-08-28 | Outpatient (CLI) | payer BC ==
[2017-08-28 12:08] VITALS: BP 144/80; PULSE 86; RESP 18; TEMP 98
--- NOTE | 2017-08-28 12:51 | P.PAINPG ---
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 She's had other medical problems including cardiomyopathy of . She had a complete right shoulder replacement performed approximately 7 years ago. She now has significant pain in the shoulder. She is scheduled to follow-up with her orthopedist. She was treated with a pain clinic prior to this and had a good relationship with that practitioner. The practitioner however is located in [place] which is a significant distance from her home. She has 3 young children and would like to transfer her care to another clinic. She has utilized Suboxone film in the past to manage her pain chronically. She reports that this is no longer working to help her. She is also utilizing Percocet in the past and felt this was beneficial. She is very aware of the risks of opiate medications. She is looking for other alternatives to treat her pain including trigger point injections. Objective - Vital Signs Vital signs: Vital Signs Temp 98 F 08/28/17 11:58 Pulse 86 08/28/17 11:58 Resp 18 08/28/17 11:58 BP 144/80 08/28/17 11:58 Pulse Ox Intake & Output 08/27/17 08/28/17 08/28/17 18:59 06:59 18:59 Weight 54.431 kg - Constitutional Constitutional Comment(s): General: The patient is alert and oriented. Patient is not sedateded Patient answers questionsappropriately. Cardiac: Heart is regular in rate and rhythm Respiratory: Clear to auscultation. No audible wheezes. Abdomen: Soft nontender nondistended. Lower extremities: Strength is normal bilaterally. Sensation is normal bilaterally. Reflexes are preserved and symmetric bilaterally. Straight leg raise is negative bilaterally. Upper extremities: The patient has well-healed scar from previous right shoulder replacement. She has decreased range of motion with right shoulder flexion as well as abduction. Rotator cuff maneuvers there is a decreased strength but do not provoke significant pain. Shoulder extension is normal. The patient does have a tremor at some points. She does have decreased sensation in her anterior right shoulder. Trigger points are palpable throughout the trapezius and rhomboid as well as lateral latissimus muscles on the right side. Assessment and Plan (1) Chronic right shoulder pain Narrative/Plan: Plan of Care 1. Medications: I had a long discussion with patient regarding medication management. She understands this is not a long-term plan. I'm using this as a bridge therapy for her to be evaluated by her orthopedist and to have treatment plan generated. She does lock up her medications at home. She also understands that it is very risky to take these medicines with benzodiazepines and we will not prescribe them if she is taking these medications. I have reviewed the patient's MAPS report and it reveals expected results. Patient has signed an opiate agreement as well as opiate consent for treatment in our clinic. They understand the risks and benefits of opiate medications. They are aware of the potential for addiction. 2. Interventions: She may benefit from right trapezius, right rhomboid and right latissimus trigger point injections. She does have a mild coagulopathy ongoing and is scheduled to have this evaluated in the very near future at the [facility]. We will hold off on any interventional procedures prior to seeing the results of this evaluation. 3. Referrals: none 4. Testing: None 5. Psychological: Patient does admit to some episodic depression. She does have 3 children and to attend a counseling session would be very difficult. She feels as though this is mostly controlled at this time. If this changes she will let us know and we will pursue other therapy. Current Visit: Yes Status: Acute Code(s): M25.511 - PAIN IN RIGHT SHOULDER; G89.29 - OTHER CHRONIC PAIN SNOMED Code(s): 27435928975723710 PQRS Measure Charge Sheet Measure #130: Documentation of Current Meds in Medical Chart: Patient's medications documented in chart Measure #226: Tobacco Use: Screen & Cessation Intervention: Pt not a tobacco user Measure #111: Pneumonia Vaccination: Pneumococcal vaccine NOT administered or previously given Measure #47: Advance Care Plan: Advance care planning discussed & documented, pt chose/unable to give Measure #412: Opioid Treatment Agreement: Documented signed opioid trtmnt agreemnt min once during opioid trtmnt Measure #317: Preventitive Care & Scrn High Bld Press & F/U: Normal blood pressure, f/u not required Measure #128: Body Mass Index (BMI) Screening & Follow-up: BMI documented within normal parameters Measure #131: Pain Assessment & Follow-up: Pain positive & plan documented Measure #431: Unhealthy Alcohol Use Preventative Care & Scrn: Patient not identified as an unhealthy alcohol user PQRS Narrative: Smoking Status Never smoker Do You Want the Pneumonia No Vaccine AT THIS TIME? Blood Pressure 144/80 Pain Intensity [Right Shoulder 6 ] Hx Alcohol Use (MH) Yes: SOCIAL Home Medications: Ambulatory Orders Hydrocortisone [Cortef] 7.5 mg PO DAILY@0700,1200 09/25/13 Hydrocortisone [Cortef] 5 mg PO DAILY@1500 09/23/16 Levothyroxine Sodium [Synthroid] 50 mcg PO SUTUTHSA 06/12/17 Multivitamins, Thera [Multivitamin (formulary)] 1 tab PO DAILY 06/12/17 Albuterol Inhaler [Ventolin Hfa Inhaler] 1 - 2 puff INHALATION RT-Q6H PRN Buprenorphine HCl [Belbuca] 75 mcg BC BID 08/27/17 Cholecalciferol [Vitamin D3] 5,000 unit PO DAILY 08/27/17 Diazepam [Valium] 10 mg PO Q6H PRN 08/27/17 HYDROcodone/APAP 10-325MG [[place] 10-325] 1 tab PO Q6HR PRN 08/27/17 Levothyroxine Sodium [Synthroid] 75 mcg PO MOWEFR 08/27/17 Ibuprofen [Motrin] 400 mg PO PRN 08/28/17 oxyCODONE HCL/ACETAMINOPHEN [Percocet 10-325 mg] 1 tab PO Q8HR PRN 3 Days #90 tab 08/28/17 Controlled Substance Measures - Controlled Substance Measures Is patient prescribed a controlled substance at discharge?: Yes When asked, does pt state using other controlled substances?: Yes If prescribed controlled substance>3 days was MAPS reviewed?: Yes If Rx opioid, was Start Talking consent form obtained?: Yes If opioid is for acute pain is fill amount 7 days or less?: No Was information provided regarding opioid addiction?: Yes
== END | disposition home or self-care (01) ==
LOC: PNWHC3 11:42
PROVIDERS: ATTEND Pain Medicine Pain Medicine
DX: M25.511 Pain in right shoulder (principal); G89.29 Other chronic pain; Z79.51 Long term (current) use of inhaled steroids; Z79.899 Other long term (current) drug therapy; Z79.891 Long term (current) use of opiate analgesic; Z98.890 Other specified postprocedural states
CPT/HCPCS: 80356; 99211

== ENCOUNTER → 2017-09-20 | Outpatient (CLI) | payer BC ==
--- NOTE | 2017-09-20 11:08 | US ---
EXAMINATION TYPE: US thyroid st tissue head/neck DATE OF EXAM: 09/20/2017 COMPARISON: US CLINICAL HISTORY: E21.5 DISORDER OF PARATHYROID GLAND; attention: to parathyroid area GLAND SIZE: Right Lobe: 4.3 x 1.5 x 1.0 cm Overall Parenchyma: homogenous Left Lobe: 3.6 x 1.2 x 0.8 cm Overall Parenchyma: homogeneous Isthmus Thickness: 0.3 cm NODULES RIGHT: # of nodules measured on right: one largest of multiple similar appearing nodules 1. 0.4 X 0.3 x 0.2 cm hypoechoic mixed nodule at the lower pole with well-defined margins; present with microcalcification. This nodule is wider than tall and shows no intranodular vascularity. This appears as a benign colloid cyst. Prior size: 0.3cm LEFT: # of nodules measured on left: one largest of multiple similar appearing nodules 1. 0.3 X 0.3 x 0.1 cm hypoechoic mixed nodule at the lower pole with well-defined margins; present with microcalcification. This nodule is wider than tall and shows no intranodular vascularity. This appears as a benign colloid cyst. ISTHMUS: # of nodules measured in the isthmus: 0 Bilateral neck scanned: no evidence of lymphadenopathy; no parathyroid nodules are seen. IMPRESSION: 1. No parathyroid nodule identified. If there is concern for parathyroid adenoma nuclear medicine par athyroid scan could be performed. 2. Bilateral subcentimeter cystic thyroid nodules most compatible with benign colloid cysts on imagin g.
--- NOTE | 2017-09-20 12:52 | US ---
EXAMINATION TYPE: US abdomen comp/pelvis limited DATE OF EXAM: 09/20/2017 COMPARISON: 06/12/2017 CLINICAL HISTORY: R10.9 ABD PAIN. Hematuria and RUQ pain. EXAM MEASUREMENTS: Liver Length: 16.1 cm Gallbladder Wall: Surgically absent cm CBD: 0.25 cm Spleen: 9.9 cm Right Kidney: 10.7 x 3.3 x 5.0 cm Left Kidney: 10.1 x 3.9 x 4.8 cm Pancreas: wnl Liver: Hyperechoic area seen measuring 2.9 x 3.4 x 2.7 cm. This was seen on the prior CT dated 018 suspected again to represent a hemangioma. In this age group this finding does most likely repres ent a hemangioma although could be definitively characterized with MR. Gallbladder: Surgically absent CBD: wnl Spleen: wnl Right Kidney: Echogenic area seen mid pole measuring .5 x .5 x .6cm with a twinkle sign. Left Kidney: Echogenic area seen LP measuring .5cm. Upper IVC: wnl Abd Aorta: wnl Bladder: wnl Bilateral Jets Seen No Hyperechoic area seen right lobe of liver measuring 2.9 x 3.4 x 2.7 cm. Bilateral echogenic areas see n in kidneys. IMPRESSION: 1. Corresponding to the previously seen hepatic lesion on the CT of 06/12/2017 there is a hyperechoic 2 .9 x 3.4 x 2.7 cm mass that most commonly represent a hemangioma in this age group. Alternatively thi s could represent focal nodular hyperplasia or adenoma and could be definitively characterized with e nhanced MR abdomen. 2. Bilateral subcentimeter nonobstructing renal calculi.
== END | disposition home or self-care (01) ==
LOC: RADUSWWP 09:41
PROVIDERS: ATTEND Family Medicine
DX: N20.0 Calculus of kidney (principal); D18.03 Hemangioma of intra-abdominal structures; E04.2 Nontoxic multinodular goiter
CPT/HCPCS: 76536; 76700; 76857

== ENCOUNTER → 2017-09-20 | Outpatient (CLI) | payer BC ==
--- NOTE | 2017-09-21 09:27 | ECHOF ---
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 This was a technically good study. The left ventricular size is normal. Left ventricular wall thickness is normal. Overall left vent ricular systolic function is normal with, an EF between 55 - 60 %. The right ventricle is normal in size and function. Normal LA size by volume 22+/-6 ml/m2. The right atrium is normal in size. The aortic valve is trileaflet, and appears structurally normal. No aortic stenosis or regurgitation. The mitral valve leaflets are mildly thickened. There is trace to mild mitral regurgitation. Mild tricuspid regurgitation present. Right ventricular systolic pressure is normal at < 35 mmHg. There is no evidence of pulmonary hypertension. Trace/mild (physiologic) pulmonic regurgitation. The aortic root size is normal. Normal inferior vena cava with normal inspiratory collapse consistent with estimated right atrial pre ssure of 5 mmHg. There is no pericardial effusion. CONCLUSIONS -------- 1. Sinus rhythm. 2. This was a technically good study. 3. The left ventricular size is normal. 4. Left ventricular wall thickness is normal. 5. Overall left ventricular systolic function is normal with, an EF between 55 - 60 %. 6. Normal LA size by volume 22+/-6 ml/m2. 7. The aortic valve is trileaflet, and appears structurally normal. No aortic stenosis or regurgitati on. 8. The mitral valve leaflets are mildly thickened. 9. There is trace to mild mitral regurgitation. 10. Mild tricuspid regurgitation present. 11. Right ventricular systolic pressure is normal at < 35 mmHg. 12. There is no evidence of pulmonary hypertension. 13. Trace/mild (physiologic) pulmonic regurgitation. 14. The aortic root size is normal. 15. There is no pericardial effusion. CLERICAL MANAGER: Buddy Corey RDCS
== END ==
LOC: RADECHMAIN 12:00
PROVIDERS: ATTEND Family Medicine
DX: Q79.6 Ehlers-Danlos syndromes (principal)
CPT/HCPCS: 93306

== ENCOUNTER → 2017-09-25 | Outpatient (CLI) | payer BC ==
[2017-09-25 14:34] VITALS: BP 136/83; PULSE 80; RESP 16
--- NOTE | 2017-09-25 15:52 | P.PAINPG ---
Subjective Progress Note Date: 09/25/17 This is certainly will use old female with a chronic history of severe right shoulder pain, and upper back pain, she stayed close with right shoulder arthralgia and she had right total shoulder replacement, done more than 6 years ago, she did fairly well until the 1 year ago when she started having severe right shoulder and right upper back pain, she was managed by her primary care until recently , the pain intensity increases significantly, and currently she is requiring Percocet 10/325 every 8 hours, she denies any side effect of the medication she denies any excessive drowsiness or sleepiness and she reports her current medication helping her to control her pain and activity of daily livings Objective - Vital Signs Vital signs: Vital Signs Temp Pulse 80 09/25/17 14:24 Resp 16 09/25/17 14:24 BP 136/83 09/25/17 14:24 Pulse Ox 100 09/25/17 14:24 Intake & Output 09/24/17 09/25/17 09/25/17 18:59 06:59 18:59 Weight 54.431 kg - Exam Physical Examinations : 1-Constitutiona : Cooperative , not in acute distress . 2-HEENT : nech ; supple , no Lymphadenopathy , normal thyroid size . eyes : no ptosis , no icterus , no photophobia . ENT : normal of hearing , normal oropharynx , no Thrush . 3- Respiratory : Chest clear to auscultations Bilaterally , no wheezing , no Rhonchi . 4- Cardiovascular : regular rate and rhythem , S1 , S2 , no S3 , no S4. 5- Gastrointestinal : abdomen soft no tenderness , bowel sounds , no organomegally . 6- Genitourinary : Defferred . 7- neurologic : Cranial nerve II to XII intact , no focal neurological deffecit . 8-psychatric : alert , oriented X 3 , appropriate affect , intact judgment and insight . 9-Lymphatic : no Lymphadenopathy . 10- musculoskeltal : cervical spine =normal moter stegnth lower extremities ,thigh and legs .5/5 Multiple trigger points identified in the right trapezius muscle Multiple trigger point identified in the right rhomboid muscle Limited abduction of the right shoulder, and increased ability to abduct or abduct the right shoulder Assessment and Plan Plan: Assessment and plan= chronic and severe right shoulder arthralgia, status post right shoulder replacement done 6 years ago Patient will follow up with her orthopedic surgeon the next few weeks for evaluation for possible revision of the right shoulder Myofascial pain syndrome right cervical/trapezius muscles and shoulder blade area/rhomboid muscle Patient to be good candidate to have trigger point injection. chronic and current use of high-risk medication (opioids) Patient denies any side effects of the current pain medication and the current treatment/medication helping the patient to do activity of daily living , Diagnoses, prognosis, treatment options, including but not limited to physical therapy, medication management, interventional therapies, and surgery, were discussed with the patient All the questions answered The narcotic consent was signed and patient agreed and understood the side effects and complications of opioid treatment. Patient signed the narcotic agreement, and was orally counseled, not to overuse, not to abuse, not to Divert , not tp sell pain medication, and to take it as prescribed only, Patient was counseled not to drive or operate heavy equipment while using narcotic medication, and advised not to use alcohol or any Illicit drugs while using the narcotis, the patient's verbalized understanding that lack of compliance with any of the above instructions, will likely to cause discharge from, the pain service, not to renew his narcotic prescriptions Medication managements= patient will be given prescription refills for Percocet 10/325 every 8 hours dispense 90 with 1 refill A prescription for Zanaflex 4 mg every 12 h giving MAPS reviewed and it was appropriate UDS reviewed and it was appropriate Patient stop using Valium , PQRS Measure Charge Sheet Measure #130: Documentation of Current Meds in Medical Chart: Patient's medications documented in chart Measure #226: Tobacco Use: Screen & Cessation Intervention: Pt not a tobacco user Measure #111: Pneumonia Vaccination: Pneumococcal vaccine NOT administered or previously given Measure #47: Advance Care Plan: Advance care planning discussed & documented, plan or surrogate given Measure #412: Opioid Treatment Agreement: Documented signed opioid trtmnt agreemnt min once during opioid trtmnt Measure #408: Opioid Therapy Follow-up Evaluation: Patient had f/u eval minimum every 3 months during opioid therapy Measure #317: Preventitive Care & Scrn High Bld Press & F/U: Normal blood pressure, f/u not required Measure #128: Body Mass Index (BMI) Screening & Follow-up: BMI documented within normal parameters Measure #131: Pain Assessment & Follow-up: Pain positive & plan documented, Follow-up scheduled Measure #431: Unhealthy Alcohol Use Preventative Care & Scrn: Patient not identified as an unhealthy alcohol user PQRS Narrative: Smoking Status Never smoker Do You Want the Pneumonia No Vaccine AT THIS TIME? Blood Pressure 136/83 Pain Intensity [Right Shoulder 3 ] Scale Used Numeric (1 - 10) Hx Alcohol Use (MH) Yes: SOCIAL Home Medications: Ambulatory Orders Hydrocortisone [Cortef] 7.5 mg PO DAILY@0700,1200 09/25/13 Hydrocortisone [Cortef] 5 mg PO DAILY@1500 09/23/16 Levothyroxine Sodium [Synthroid] 50 mcg PO SUTUTHSA 06/12/17 Multivitamins, Thera [Multivitamin (formulary)] 1 tab PO DAILY 06/12/17 Albuterol Inhaler [Ventolin Hfa Inhaler] 1 - 2 puff INHALATION RT-Q6H PRN Cholecalciferol [Vitamin D3] 5,000 unit PO DAILY 08/27/17 Diazepam [Valium] 10 mg PO Q6H PRN 08/27/17 Levothyroxine Sodium [Synthroid] 75 mcg PO MOWEFR 08/27/17 Ibuprofen [Motrin] 400 mg PO Q8HR PRN #90 tab 09/25/17 oxyCODONE HCL/ACETAMINOPHEN [Percocet 10-325 mg] 1 tab PO Q8HR PRN 30 Days #90 tab 09/25/17 oxyCODONE HCL/ACETAMINOPHEN [Percocet 10-325 mg] 1 tab PO Q8HR PRN 30 Days #90 tab 09/25/17 tiZANidine HCL [Zanaflex] 4 mg PO BID #60 capsule 09/25/17 Controlled Substance Measures - Controlled Substance Measures Is patient prescribed a controlled substance at discharge?: Yes When asked, does pt state using other controlled substances?: Yes If prescribed controlled substance>3 days was MAPS reviewed?: Yes If Rx opioid, was Start Talking consent form obtained?: Yes If opioid is for acute pain is fill amount 7 days or less?: No Was information provided regarding opioid addiction?: Yes
== END | disposition home or self-care (01) ==
LOC: PNWHC3 13:13
PROVIDERS: ATTEND Specialist
DX: G89.29 Other chronic pain (principal); M25.511 Pain in right shoulder; M79.1 Myalgia; M54.9 Dorsalgia, unspecified; Z96.611 Presence of right artificial shoulder joint; Z79.891 Long term (current) use of opiate analgesic; Z79.51 Long term (current) use of inhaled steroids; Z79.1 Long term (current) use of non-steroidal anti-inflammatories (NSAID); Z79.899 Other long term (current) drug therapy
CPT/HCPCS: 99211

== ENCOUNTER 2017-10-08 06:50 | Day surgery (SDC) | payer BC ==
[~2017-10-08 06:50] MED LIST: LACTATED RINGERS 1,000 ML IV SCH
[2017-10-08 07:45] VITALS: TEMP 98.5
[2017-10-08 08:19] VITALS: RESP 18
--- NOTE | 2017-10-08 08:19 | P.PCN ---
Date of Procedure: 10/08/17 Surgeon: Romaine Arnold Description of Procedure: Preoperative Diagnosis: myofascial pain syndrome of right trapezius, right rhomboid Postoperative diagnosis: Same Anesthesia: Local Surgeon: Romaine Arnold MD Indications for procedure: This is a 32-year-old patient with myofascial pain and palpable trigger points in right trapezius and right rhomboid muscles. The patient consents for an injection after an explanation of risks including but not limited to bleeding and infection, benefits, and alternatives and the patient has signed a consent form indicating understanding of all of them. Description of procedure: After informed consent was obtained the patient's back was sterilely prepped in the usual fashion with ChloraPrep. 4 trigger points were identified via palpation of the rhomboid and trapezius on the right side muscles and marked sterilely. Each trigger point was injected with a 25-gauge half inch needle, with 1 mL of a solution containing 0.5% bupivacaine and 40 mg of Kenalog for total of 5 mls. The patient's vital signs were stable afterwards and the procedure was tolerated well. Patient was discharged home with follow-up instructions.
[2017-10-08 08:31] VITALS: BP 139/84; PULSE 78
== END 2017-10-08 08:40 | disposition home or self-care (01) ==
LOC: ORPAIN 06:50
PROVIDERS: ATTEND Pain Medicine Pain Medicine
DX: G89.29 Other chronic pain (principal); M25.511 Pain in right shoulder; M79.1 Myalgia; Z79.899 Other long term (current) drug therapy
CPT/HCPCS: 81025; 20552; J3301; 20553

== ENCOUNTER → 2017-10-08 | Outpatient (CLI) | payer BC | END | disposition home or self-care (01) | LOC: LABWHC1 10-07 10:31 | PROVIDERS: ATTEND Family Medicine | DX: E21.3 Hyperparathyroidism, unspecified (principal) | CPT/HCPCS: 36415; 83519 ==

== ENCOUNTER → 2017-10-16 | Outpatient (CLI) | payer BC ==
--- NOTE | 2017-10-16 20:54 | NM ---
EXAMINATION TYPE: NM parathyroid w/spect DATE OF EXAM: 10/16/2017 COMPARISON: Thyroid ultrasound September 20, 2017. HISTORY: Hyperparathyroidism per order. Increase calcium and PTH with loss of bone loss over last 6 m onths and loss of dentition per patient. TECHNIQUE: Following administration of 26.0 mCi Tc99m Sestamibi. Anterior projection images of the neck and ches t were obtained 10 minutes and 3 hours post injection. SPECT images of the neck and chest were obtai errol and reconstructed in three axes. FINDINGS: Thyroid tracer washout: Delayed images demonstrate near-complete tracer washout from the thyroid. Parathyroid uptake: None. The two-hour delayed images do not demonstrate any focal abnormal persisten t uptake in the region of the parathyroid glands to suggest parathyroid adenoma. Normal uptake: There is physiological tracer uptake in the parotid and submandibular glands. IMPRESSION: Normal parathyroid imaging study. No evidence for suspicious uptake to suggest parathyroid adenoma.
== END | disposition home or self-care (01) ==
LOC: RADNMMAIN 11:15
PROVIDERS: ATTEND Family Medicine
DX: E21.3 Hyperparathyroidism, unspecified (principal)
CPT/HCPCS: 78071; A9500

== ENCOUNTER → 2017-10-29 | Day surgery (SDC) | payer BC ==
[~2017-10-29] MED LIST changes: +LACTATED RINGERS 1,000 ML IV ONE; +LIDOCAINE 1% 20 ML VIAL (10MG/ML) FOR IV START INTRADERMA ONE
[2017-10-29 09:43] VITALS: TEMP 98
[2017-10-29 11:18] VITALS: RESP 16
[2017-10-29 11:27] VITALS: BP 136/90; PULSE 89
--- NOTE | 2017-10-29 12:05 | P.PCN ---
Date of Procedure: 10/29/17 Procedure(s) Performed: Preoperative diagnoses = myofascial pain syndrome cervical area. Postoperative diagnoses= same as pre op diagnosis . Anesthesia = moderate sedation with Versed 2 mg and fentanyl 50 g. Indication for the procedure= patient had chronic myofascial pain syndrome, she failed conservative treatment Procedure= trigger point injections on the right side trapezius muscles, and right rhomboid muscles , total of 4 trigger points injected. Description of the procedure= patient taken to the procedure room and placed in sitting position the neck area prepped with chlorhexidine 3, and under sterile technique and she'll the trigger points injected with mixture of ropivacaine 0.5 % mixed with 40 mg of Kenalog total of 3 mL of the mixture injected at a trigger point , after negative aspiration , and there was no paresthesia during the injection, using 25-gauge needle , total of 4 trigger points injected, tolerated the procedure well without any complications
[2017-10-29 12:17] LABS: Glucose,Whole Blood 116 mg/dL (75-99)
== END | disposition home or self-care (01) ==
LOC: ORPAIN 09:22
PROVIDERS: ATTEND Specialist
DX: G89.29 Other chronic pain (principal); M79.1 Myalgia; M54.2 Cervicalgia; Z91.030 Bee allergy status
CPT/HCPCS: 20553; 81025; J2250; J1030; J3010

== ENCOUNTER → 2017-11-18 | Outpatient (CLI) | payer BC ==
[2017-11-18 11:52] VITALS: BP 144/96; PULSE 90; RESP 18
--- NOTE | 2017-11-18 12:35 | P.PN ---
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 The patient recently was diagnosed with avascular necrosis of the left jaw and she is going to have surgery and bone graft in [facility] tomorrow. The patient has been using Percocet 10 mg 3 times a day and Zanaflex. The patient had side effects to Zanaflex with low blood pressure and dizziness. She responded favorably to trigger point injection previously. Today, pt denies new-onset weakness, bowel/bladder incontinence, or any other signs or symptoms of cauda equina syndrome. There are no signs of acute intoxication, and no indications of medication diversion or overuse. In addition to above, 13-point review of systems is also negative for chest pain , shortness of breath, changes in vision, changes in hearing, new onset weakness , abdominal pain, diarrhea, extreme fatigue, malaise, fever, skin changes, homicidal or suicidal ideation, or bowel or bladder incontinence. Vital Signs: Reviewed in EMR Gen: AAOx3, NAD HEENT: PERRLA,hearing grossly normal Pulm: resp unlabored,CTA Heart:S1,S2, No Mur Neck: supple, trachea midline She has tenderness in the cervical paravertebral area on the right side and also in the right trapezius muscle. She has muscle wasting around the right shoulder girdle. She has limited range of motion of the right shoulder joint. Neuro: CN II-XII grossly intact, Imaging: Reviewed in EMR/chart Assessment: 2-year-old female with history of right shoulder pain due to avascular necrosis and joint replacement. recently diagnosed with avascular necrosis in the left jaw. I'll increase her Percocet 200 pills per month for the acute postoperative pain that she is going to have after her jaw surgery. Plan: 1. Explanation: Opioid and psychological risk scores were reviewed. Diagnoses , prognoses, and multiple treatment options including but not limited to physical therapy, interventional therapies, adjuvant medical therapies, narcotic medication therapies, and surgery were discussed with the patient and all questions were answered to the patient's satisfaction. 2. Opioid agreement: Signed with the patient and the patient is warned not to use opioids while driving or before driving and not to combine opioids with benzodiazepines or alcohol. 3. Counseling: The patient was counseled extensively on SMOKING CESSATION, BODY MASS INDEX, EXERCISE. Specifically, the patient was instructed regarding the importance of smoking cessation, obesity, and exercise in the context of both chronic pain and overall health. 4. Procedures: None 5. Consultations: None 6. Investigations: None 7. Medications: Percocet 10 mg #100 pills 8. Disposition: Return to clinic in 4 weeks 9. Maps were reviewed and were appropriate. Objective - Vital Signs Vital signs: Vital Signs Temp Pulse 90 11/18/17 11:45 Resp 18 11/18/17 11:45 BP 144/96 11/18/17 11:45 Pulse Ox 100 11/18/17 11:45 Intake & Output 11/17/17 11/18/17 11/18/17 18:59 06:59 18:59 Weight 49.895 kg
== END | disposition home or self-care (01) ==
LOC: PNWHC3 11:37
PROVIDERS: ATTEND Anesthesiology
DX: G89.18 Other acute postprocedural pain (principal); M25.511 Pain in right shoulder; M87.9 Osteonecrosis, unspecified; M27.2 Inflammatory conditions of jaws; I95.2 Hypotension due to drugs; T42.8X5D Adverse effect of antiparkinsonism drugs and other central muscle-tone depressants, subsequent encounter; R42 Dizziness and giddiness; M62.511 Muscle wasting and atrophy, not elsewhere classified, right shoulder; Z96.611 Presence of right artificial shoulder joint; Z79.891 Long term (current) use of opiate analgesic
CPT/HCPCS: 99211

== ENCOUNTER → 2017-12-12 | Outpatient (CLI) | payer BC ==
--- NOTE | 2017-12-12 14:07 | P.PN ---
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 The patient recently was diagnosed with avascular necrosis of the left jaw and she underwent surgery on it 3 weeks ago The patient has been using Percocet 10 mg 3 times a day and Zanaflex. The patient had side effects to Zanaflex with low blood pressure and dizziness. She responded favorably to trigger point injection . The patient using 4 pills a day of Percocet because of her acute postoperative pain from her jaw surgery. Today, pt denies new-onset weakness, bowel/bladder incontinence, or any other signs or symptoms of cauda equina syndrome. There are no signs of acute intoxication, and no indications of medication diversion or overuse. In addition to above, 13-point review of systems is also negative for chest pain , shortness of breath, changes in vision, changes in hearing, new onset weakness , abdominal pain, diarrhea, extreme fatigue, malaise, fever, skin changes, homicidal or suicidal ideation, or bowel or bladder incontinence. Vital Signs: Reviewed in EMR Gen: AAOx3, NAD HEENT: PERRLA,hearing grossly normal Pulm: resp unlabored,CTA Heart:S1,S2, No Mur Neck: supple, trachea midline Neuro: CN II-XII grossly intact, Imaging: Reviewed in EMR/chart Assessment: 32-year-old female with history of right shoulder pain due to avascular necrosis and joint replacement. recently diagnosed with avascular necrosis in the left jaw. I'll increase her Percocet to 120 pills per month for only one month and we will go down to 90 pills a month afterwards. Plan: 1. Explanation: Opioid and psychological risk scores were reviewed. Diagnoses , prognoses, and multiple treatment options including but not limited to physical therapy, interventional therapies, adjuvant medical therapies, narcotic medication therapies, and surgery were discussed with the patient and all questions were answered to the patient's satisfaction. 2. Opioid agreement: Signed with the patient and the patient is warned not to use opioids while driving or before driving and not to combine opioids with benzodiazepines or alcohol. 3. Counseling: The patient was counseled extensively on SMOKING CESSATION, BODY MASS INDEX, EXERCISE. Specifically, the patient was instructed regarding the importance of smoking cessation, obesity, and exercise in the context of both chronic pain and overall health. 4. Procedures: None 5. Consultations: None 6. Investigations: None 7. Medications: Percocet 10 mg #120 pills 8. Disposition: Return to clinic in 4 weeks 9. Maps were reviewed and were appropriate. Objective - Vital Signs Vital signs: Intake & Output 12/11/17 12/12/17 12/12/17 18:59 06:59 18:59 Weight 49.895 kg
[2017-12-12 14:08] VITALS: BP 154/100; RESP 16
== END | disposition home or self-care (01) ==
LOC: PNWHC3 13:22
PROVIDERS: ATTEND Anesthesiology
DX: M25.511 Pain in right shoulder (principal); Z96.611 Presence of right artificial shoulder joint; Z79.891 Long term (current) use of opiate analgesic
CPT/HCPCS: 99211

== ENCOUNTER → 2018-01-09 | Outpatient (CLI) | payer BC ==
[2018-01-09 14:22] VITALS: BP 169/104; PULSE 69; RESP 16
--- NOTE | 2018-01-11 11:08 | P.PAINPG ---
Subjective Progress Note Date: 01/09/18 This is a follow-up visit for this 32 years old female with the history of severe upper back pain and right shoulder pain and currently she is complaining of severe jaw pain, she's been diagnosed with lupus, and rheumatoid arthritis, she had sever Right shoulder pain ,status post right shoulder joint replacement , due to avascular necrosis The patient recently was diagnosed with avascular necrosis of the left jaw and she underwent surgery on it few weeks ago The patient has been using Percocet 10/325 4 times a day, and baclofen 10 mg daily at bedtime. She responded favorably to trigger point injection . Patient denies any side effects of the medication she denies any excessive drowsiness and sleepiness and she reported the current medication helping to control her pain In addition to above, 13-point review of systems is also negative for chest pain , shortness of breath, changes in vision, changes in hearing, new onset weakness , abdominal pain, diarrhea, extreme fatigue, malaise, fever, skin changes, homicidal or suicidal ideation, or bowel or bladder incontinence. Vital Signs: Reviewed in EMR Gen: AAOx3, NAD HEENT: PERRLA,hearing grossly normal Pulm: resp unlabored,CTA Heart:S1,S2, No Murrmer Neck: supple, trachea midline Neuro: CN II-XII grossly intact, Multiple trigger points identified in the cervical paravertebral muscles and suprascapular muscle and rhomboid muscle and trapezius muscle Assessment: And plan 32-year-old female with history of right shoulder pain due to avascular necrosis and joint replacement. recently diagnosed with avascular necrosis in the left jaw. She is using Percocet to 120 pills per month 1. Explanation: Opioid and psychological risk scores were reviewed. Diagnoses , prognoses, and multiple treatment options including but not limited to physical therapy, interventional therapies, adjuvant medical therapies, narcotic medication therapies, and surgery were discussed with the patient and all questions were answered to the patient's satisfaction. 2. Opioid agreement: Signed with the patient and the patient is warned not to use opioids while driving or before driving and not to combine opioids with benzodiazepines or alcohol. 3. Counseling: The patient was counseled extensively on SMOKING CESSATION, BODY MASS INDEX, EXERCISE. Specifically, the patient was instructed regarding the importance of smoking cessation, obesity, and exercise in the context of both chronic pain and overall health. 4. Procedures: Patient could benefit from repeat trigger point injection in the cervical and upper thoracic area 5. Consultations: None 6. Investigations: None 7. Medications: Percocet 10 mg #120 pills and baclofen 10 mg daily at bedtime 8. Disposition: Return to clinic in 8 weeks 9. Maps were reviewed and were appropriate. Objective - Vital Signs Vital signs: Vital Signs Temp Pulse 69 01/09/18 13:58 Resp 16 01/09/18 13:58 BP 169/104 01/09/18 13:58 Pulse Ox 92 L 01/09/18 13:58 PQRS Measure Charge Sheet Measure #130: Documentation of Current Meds in Medical Chart: Patient's medications documented in chart Measure #226: Tobacco Use: Screen & Cessation Intervention: Pt not a tobacco user Measure #111: Pneumonia Vaccination: Pneumococcal vaccine NOT administered or previously given Measure #47: Advance Care Plan: Advance care planning discussed & documented, pt chose/unable to give Measure #412: Opioid Treatment Agreement: Documented signed opioid trtmnt agreemnt min once during opioid trtmnt Measure #408: Opioid Therapy Follow-up Evaluation: Patient had f/u eval minimum every 3 months during opioid therapy Measure #317: Preventitive Care & Scrn High Bld Press & F/U: Normal blood pressure, f/u not required Measure #128: Body Mass Index (BMI) Screening & Follow-up: BMI documented BELOW normal parameters - f/u documented Measure #131: Pain Assessment & Follow-up: Pain positive & plan documented, Follow-up scheduled Measure #431: Unhealthy Alcohol Use Preventative Care & Scrn: Patient not identified as an unhealthy alcohol user PQRS Narrative: Smoking Status Never smoker Do You Want the Pneumonia No Vaccine AT THIS TIME? Blood Pressure 169/104 Pain Intensity [Right Shoulder 4 ] Scale Used Numeric (1 - 10) Hx Alcohol Use (MH) Yes: SOCIAL Home Medications: Ambulatory Orders Hydrocortisone [Cortef] 7.5 mg PO DAILY@0700,1200 09/25/13 Hydrocortisone [Cortef] 5 mg PO DAILY@1500 09/23/16 Levothyroxine Sodium [Synthroid] 50 mcg PO SUTUTHSA 06/12/17 Multivitamins, Thera [Multivitamin (formulary)] 1 tab PO DAILY 06/12/17 Albuterol Inhaler [Ventolin Hfa Inhaler] 1 - 2 puff INHALATION RT-Q6H PRN Cholecalciferol [Vitamin D3] 5,000 unit PO DAILY 08/27/17 Levothyroxine Sodium [Synthroid] 75 mcg PO MOWEFR 08/27/17 Baclofen 1 tab PO HS 11/19/17 Ibuprofen [Motrin] 600 mg PO Q8HR PRN 12/12/17 oxyCODONE HCL/ACETAMINOPHEN [Percocet 10-325 mg] 1 tab PO Q6HR PRN 01/09/18 Controlled Substance Measures - Controlled Substance Measures Is patient prescribed a controlled substance at discharge?: Yes When asked, does pt state using other controlled substances?: No If prescribed controlled substance>3 days was MAPS reviewed?: Yes If Rx opioid, was Start Talking consent form obtained?: Yes If opioid is for acute pain is fill amount 7 days or less?: No Was information provided regarding opioid addiction?: Yes
== END | disposition home or self-care (01) ==
LOC: PNWHC3 13:39
PROVIDERS: ATTEND Specialist
DX: M27.2 Inflammatory conditions of jaws (principal); M25.511 Pain in right shoulder; Z96.611 Presence of right artificial shoulder joint; Z79.899 Other long term (current) drug therapy; Z79.51 Long term (current) use of inhaled steroids
CPT/HCPCS: 99211

== ENCOUNTER → 2018-02-24 | Outpatient (CLI) | payer BC ==
[2018-02-24 13:45] VITALS: BP 129/89; PULSE 101; RESP 16
--- NOTE | 2018-02-24 13:57 | P.PN ---
Subjective Progress Note Date: 02/24/18 This is follow-up visit for this 32 years old female with a chronic history of severe right shoulder pain, and upper back pain, she is diagnosed with right shoulder arthralgia ,and she had right total shoulder replacement, done more than 6 years ago, she did fairly well until the 1 year ago when she started having severe right shoulder and right upper back pain, she was managed by her primary care until recently , the pain intensity increases significantly, and currently she is requiring Percocet 10/325 every 6 hours, she denies any side effect of the medication she denies any excessive drowsiness or sleepiness and she reports her current medication helping her to control her pain and activity of daily livings, patient started physical therapy recently which is helping her right shoulder pain, and also she was started on Plaquenil, to help her RA , also patient complained of severe mandibular pain secondary to avascular necrosis of her jaw Physical Examinations : 1-Constitutiona : Cooperative , not in acute distress . 2-HEENT : nech ; supple , no Lymphadenopathy , normal thyroid size . eyes : no ptosis , no icterus , no photophobia . ENT : normal of hearing , normal oropharynx , no Thrush . 3- Respiratory : Chest clear to auscultations Bilaterally , no wheezing , no Rhonchi . 4- Cardiovascular : regular rate and rhythem , S1 , S2 , no S3 , no S4. 5- Gastrointestinal : abdomen soft no tenderness , bowel sounds , no organomegally . 6- Genitourinary : Defferred . 7- neurologic : Cranial nerve II to XII intact , no focal neurological deffecit . 8-psychatric : alert , oriented X 3 , appropriate affect , intact judgment and insight . 9-Lymphatic : no Lymphadenopathy . 10- musculoskeltal : cervical spine =normal moter stegnth lower extremities ,thigh and legs .5/5 Multiple trigger points identified in the right trapezius muscle Multiple trigger point identified in the right rhomboid muscle Limited abduction of the right shoulder, and increased ability to abduct or abduct the right shoulder Assessment and Plan Plan: Assessment and plan= chronic and severe right shoulder arthralgia, status post right shoulder replacement done 6 years ago Patient started physical therapy on her right shoulder Myofascial pain syndrome right cervical/trapezius muscles and shoulder blade area/rhomboid muscle Patient to be good candidate to have trigger point injection. chronic and current use of high-risk medication (opioids) Patient denies any side effects of the current pain medication and the current treatment/medication helping the patient to do activity of daily living , Diagnoses, prognosis, treatment options, including but not limited to physical therapy, medication management, interventional therapies, and surgery, were discussed with the patient All the questions answered The narcotic consent was signed and patient agreed and understood the side effects and complications of opioid treatment. Patient signed the narcotic agreement, and was orally counseled, not to overuse, not to abuse, not to Divert , not tp sell pain medication, and to take it as prescribed only, Patient was counseled not to drive or operate heavy equipment while using narcotic medication, and advised not to use alcohol or any Illicit drugs while using the narcotis, the patient's verbalized understanding that lack of compliance with any of the above instructions, will likely to cause discharge from, the pain service, not to renew his narcotic prescriptions Medication managements= patient will be given prescription refills for Percocet 10/325 every 6 hours dispense 120 with 1 refill A prescription for Zanaflex 4 mg every 12 h giving MAPS reviewed and it was appropriate UDS reviewed and it was appropriate , PQRS Measure Charge Sheet Measure #130: Documentation of Current Meds in Medical Chart: Patient's medications documented in chart Measure #226: Tobacco Use: Screen & Cessation Intervention: Pt not a tobacco user Measure #111: Pneumonia Vaccination: Pneumococcal vaccine NOT administered or previously given Measure #47: Advance Care Plan: Advance care planning discussed & documented, plan or surrogate given Measure #412: Opioid Treatment Agreement: Documented signed opioid trtmnt agreemnt min once during opioid trtmnt Measure #408: Opioid Therapy Follow-up Evaluation: Patient had f/u eval minimum every 3 months during opioid therapy Measure #317: Preventitive Care & Scrn High Bld Press & F/U: Normal blood pressure, f/u not required Measure #128: Body Mass Index (BMI) Screening & Follow-up: BMI documented ( 19.1 ) below the normal parameters Measure #131: Pain Assessment & Follow-up: Pain positive & plan documented, Follow-up scheduled Measure #431: Unhealthy Alcohol Use Preventative Care & Scrn: Patient not identified as an unhealthy alcohol user PQRS Narrative: Objective - Vital Signs Vital signs: Vital Signs Temp Pulse 101 H 02/24/18 13:37 Resp 16 12/17/18 13:37 BP 129/89 02/24/18 13:37 Pulse Ox 100 02/24/18 13:37 Intake & Output 02/23/18 02/24/18 02/24/18 18:59 06:59 18:59 Weight 52.163 kg
== END | disposition home or self-care (01) ==
LOC: PNWHC3 12:42
PROVIDERS: ATTEND Specialist
DX: G89.29 Other chronic pain (principal); M25.511 Pain in right shoulder; M79.18 Myalgia, other site; Z96.611 Presence of right artificial shoulder joint; Z79.891 Long term (current) use of opiate analgesic
CPT/HCPCS: 99211

== ENCOUNTER → 2018-06-16 | Outpatient (CLI) | payer BC ==
[2018-06-16 12:35] VITALS: BP 143/67; PULSE 95; RESP 18
--- NOTE | 2018-06-18 06:04 | P.PN ---
Subjective Progress Note Date: 06/16/18 This is follow-up visit for this 32 years old female with a chronic history of severe right shoulder pain, and upper back pain, she is diagnosed with right shoulder arthralgia ,and she had right total shoulder replacement, done more than 6 years ago, she did fairly well until the 1 year ago when she started having severe right shoulder and right upper back pain, she was managed by her primary care until recently , though physical therapy which helped significantly, currently she is complaining of severe nausea, and lack of appetite, and she prescribed DRONABINOL , and she uses Ambien 10 mg daily at bedtime to help her sleep ,to manage her nausea and vomiting and improve ap petite, and currently she is requiring Percocet 10/325 every 6 hours, she denies any side effect of the medication she denies any excessive drowsiness or sleepiness and she reports her current medication helping her to control her pain and activity of daily living , also patient complained of mandibular pain secondary to avascular necrosis of her jaw Physical Examinations : 1-Constitutiona : Cooperative , not in acute distress . 2-HEENT : nech ; supple , no Lymphadenopathy , normal thyroid size . eyes : no ptosis , no icterus, no photophobia . ENT : normal of hearing , normal oropharynx , no Thrush . 3- Respiratory : Chest clear to auscultations Bilaterally , no wheezing , no Rhonchi . 4- Cardiovascular : regular rate and rhythem , S1 , S2 , no S3 , no S4. 5- Gastrointestinal : abdomen soft no tenderness , bowel sounds , no organomegally . 6- Genitourinary : Defferred . 7- neurologic : Cranial nerve II to XII intact , no focal neurological deffecit . 8-psychatric : alert , oriented X 3 , appropriate affect , intact judgment and insight . 9-Lymphatic : no Lymphadenopathy . 10- musculoskeltal : cervical spine =normal moter stegnth lower extremities ,thigh and legs .5/5 Multiple trigger points identified in the right trapezius muscle Multiple trigger point identified in the right rhomboid muscle Limited abduction of the right shoulder, and increased ability to abdu ct or abduct the right shoulder Assessment and plan= chronic and severe right shoulder arthralgia, status post right shoulder replacement done 6 years ago Patient started physical therapy on her right shoulder Myofascial pain syndrome right cervical/trapezius muscles and shoulder blade area/rhomboid muscle Patient to be good candidate to have trigger point injection. chronic and current use of high-risk medication (opioids) Patient denies any side effects of the current pain medication and the current treatment/medication helping the patient to do activity of daily living , Diagnoses, prognosis, treatment options, including but not limited to physical therapy, medication management, interventional therapies, and surgery, were discussed with the patient All the questions answered The narcotic consent was signed and patient agreed and understood the side effects and complications of opioid treatment. Patient signed the narcotic agreement, and was orally counseled, not to overuse, not to abuse, not to Divert , not tp sell pain medication, and to take it as prescribed only, Patient was counseled not to drive or operate heavy equipment while using narcotic medication, and advised not to use alcohol or any Illicit drugs while using the narcotis, understanding that lack of compliance with any of the above instructions, will likely to cause discharge from, the pain service, not to renew his narcotic prescriptions Medication managements= patient will be given prescription refills for Percocet 10/325 every 6 hours dispense 120 with 1 refill A prescription for baclofen 10 mg daily at bedtime dispense 30 with one refill patient. MAPS reviewed and it was appropriate(patient using DRONABINOL and she expressed intention to stop using the because her sedation level is high 640) UDS reviewed and it was appropriate Prescription for TENS unit.Given , PQRS Measure Charge Sheet Measure #130: Documentation of Current Meds in Medical Chart: Patient's medications documented in chart Measure #226: Tobacco Use: Screen & Cessation Intervention: Pt not a tobacco user Measure #111: Pneumonia Vaccination: Pneumococcal vaccine NOT administered or previously given Measure #47: Advance Care Plan: Advance care planning discussed & documented, plan or surrogate given Measure #412: Opioid Treatment Agreement: Documented signed opioid trtmnt agreemnt min once during opioid trtmnt Measure #408: Opioid Therapy Follow-up Evaluation: Patient had f/u eval minimum every 3 months during opioid therapy Measure #317: Preventitive Care & Scrn High Bld Press & F/U: Elevated blood pressure, she will follow up with the primary care Measure #128: Body Mass Index (BMI) Screening & Follow-up: BMI documented (19.1 ) below the normal parameters Measure #131: Pain Assessment & Follow-up: Pain positive & plan documented, Follow-up scheduled Measure #431: Unhealthy Alcohol Use Preventative Care & Scrn: Patient not identified as an unhealthy alcohol user PQRS Narrative: Objective - Vital Signs Vital signs: Vital Signs Temp Pulse 95 06/16/18 12:24 Resp 18 06/16/18 12:24 BP 143/67 06/16/18 12:24 Pulse Ox 100 06/16/18 12:24
== END ==
LOC: PNWHC3 11:51
PROVIDERS: ATTEND Specialist
DX: G89.29 Other chronic pain (principal); M79.18 Myalgia, other site; M25.511 Pain in right shoulder; M54.89 Other dorsalgia; F11.90 Opioid use, unspecified, uncomplicated; R11.0 Nausea; R63.0 Anorexia; Z79.899 Other long term (current) drug therapy; Z96.611 Presence of right artificial shoulder joint
CPT/HCPCS: 99211

== ENCOUNTER → 2018-08-11 | Outpatient (CLI) | payer BC ==
[2018-08-11 12:12] VITALS: BP 142/96; PULSE 98; RESP 24
--- NOTE | 2018-08-11 12:38 | P.PN ---
Subjective Progress Note Date: 08/11/18 Catheter is 33-year-old female presents today with a chief complaint of right shoulder pain. She's had this right shoulder pain for many years. She is status post total shoulder replacement about 7 years ago. She continues to have pain which began little over a year ago. She reports her pain is causing her significant amount discomfort and limitation with range of motion. 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 She has a history of to Timmy tumor an epidural insufficiency as well. She reports she is possibly can have reverse total shoulder done in October of this year. She is using Percocet 3-4 times a day as needed. She denies any side effects from the current medications. She also uses baclofen and the TENS unit as needed. She reports a TENS unit significantly improving her spasm pain. Objective - Vital Signs Vital signs: Vital Signs Temp Pulse 98 08/11/18 12:03 Resp 24 08/11/18 12:03 BP 142/96 08/11/18 12:03 Pulse Ox 100 08/11/18 12:03 Intake & Output 08/10/18 08/11/18 08/11/18 18:59 06:59 18:59 Weight 54.431 kg - Exam PHYSICAL EXAM: Constitutional: Awake and alert no distress Cardiovascular exam: Regular rate, no lower extremity edema, palpable pulses bilaterally Respiratory exam: No audible wheezing, no accessory muscle usage Abdominal exam: Soft nontender Muscular skeletal exam: - Cervical spine: Nontender to palpation bilaterally. Range of motion is not limited. Spurling is negative bilateral. Facet loading is negative bilaterally - Lumbar spine: Preserved lumbar lordosis. No changes in skin. Nontender palpation bilateral. Patient has full range of motion in flexion and extension as well as lateral sidebending. Straight leg raise is negative. Right shoulder: There is very limited range of motion. Patient has abduction to about 45. She has flexion of the shoulder to about 40. She didn't extend the shoulder to about 25. She is able to minimally internal and external rotate the shoulder. 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 There is no limitation range of motion of the cervical spine. Neuro exam: Normal sensation bilateral upper and lower extremities. Deep tendon reflexes are 2+ bilaterally. Sheppard's is negative Psychiatric exam: Cooperative, good insight Assessment and Plan Assessment: Right shoulder avascular necrosis Plan: Plan is to continue the current medication regimens. Long discussion with the patient regarding the dose of these medications and using them appropriately. We'll continue to monitor the patient for signs of misuse, we'll check maps and continue do urine drug screens as needed. She has children home and discussed with her the need to make sure that the medications are safe and not to be left around is a computed dangerous for her children. We will follow up with the patient in about 10 weeks' time
== END | disposition home or self-care (01) ==
LOC: PNWHC3 11:49
PROVIDERS: ATTEND Hospitalist
DX: M87.811 Other osteonecrosis, right shoulder (principal); M27.2 Inflammatory conditions of jaws; Z96.619 Presence of unspecified artificial shoulder joint
CPT/HCPCS: 99211

== ENCOUNTER → 2018-10-06 | Outpatient (CLI) | payer BC ==
--- NOTE | 2018-10-07 09:29 | P.PAINPG ---
Subjective Progress Note Date: 10/07/18 Altagracia is 33-year-old female presents today with a chief complaint of right shoulder pain. She's had this right shoulder pain for many years. She is status post total shoulder replacement about 7 years ago. She continues to have pain which began little over a year ago. She reports her pain is causing her significant amount discomfort and limitation with range of motion. 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 She has a history of adrenal insufficiency as well. She reports she is scheduled to have reverse total shoulder done in November of this year. She is using Percocet 3-4 times a day as needed. She denies any side effects from the current medications. She also uses baclofen and a TENS unit as needed. She also undergoes acupuncture every 6-8 weeks with some benefit. She reports a TENS unit is significantly improving her spasm pain. Spasms are primarily located in her upper back and posterior shoulder on the right side. Today, she is inquiring about trigger point injections. She is also following with rheumatology at [facility], the etiology of avascular necrosis is undetermined at this point, the patient has been diagnosed with lupus in the past. She reports that the steroids which she takes for adrenal insufficiency are currently being weaned in preparation for surgery. 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 She has 3 children at home age 5, 3, 2. She was experiencing significant benefit from physical therapy, however has stopped physical therapy recently due to needing to save sessions for her after her surgery. Review of systems is negative for chest pain, shortness of breath, new onset weakness, numbness/tingling, abdominal pain, malaise, fever, night sweats, chills, homicidal or suicidal ideation, or bowel or bladder incontinence. Objective Physical exam: Vitals: Reviewed in EMR GENERAL: Well appearing, in no acute distress, cradles right arm PSYCH: Mood and affect is appropriate. Awake, alert, and oriented SKIN: Skin color, texture, turgor normal, no rashes or lesions HEENT: Normocephalic, atraumatic. EOM intact CV: No pedal edema RESP: Respirations are unlabored, no audible wheezing GI: Abdomen non-distended MUSCULOSKELETAL: Bilateral upper and lower extremity strength is normal and symmetric. No atrophy or tone abnormalities are noted. Neck: Tenderness to palpation over the cervical paraspinous muscles, rhomboids and trapezius muscles bilaterally. Spurling negative, Axial Loading Test negative, Sheppard's sign negative. No pain with neck flexion, extension, or lateral flexion. No obvious deformity or signs of trauma. Normal cervical lordotic curve and normal cervical spine range of motion Right shoulder: Abduction and flexion limited to 80. Positive open book and Neer sign. Extremities: Peripheral joint ROM is full and pain free without obvious instability or laxity in all four extremities except right shoulder. No edema or skin discolorations noted. Gait: Gait is normal NEUR: Bilateral upper and lower extremity coordination and muscle stretch reflexes are physiologic and symmetric. Negative clonus bilaterally. No loss of sensation noted. 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 Long discussion with the patient regarding the dose of these medications and using them appropriately. We discussed that these medications will not be continued long-term, plan will be to wean her off narcotics following her shoulder surgery in November. She is amenable to this plan. We'll continue to monitor the patient for signs of misuse, we'll check maps and continue do urine drug screens as needed. She has children home and discussed with her the need to make sure that the medications are safe an she keeps them locked up. We will also schedule bilateral trigger point injections at cervical paraspinals, rhomboids, trapezius muscles. We will plan on avoiding steroid in these injections, as she is working on weaning her steroids which he takes for adrenal insufficiency prior to her surgery. Advised the patient to take [id number] magnesium glycinate 400 mg daily to relieve spasms. Follow-up: For procedure and in 2 month's time for medication review Objective - Vital Signs Vital signs: Vital Signs Temp 98 F 10/06/18 12:48 Pulse 98 10/06/18 12:48 Resp 16 10/06/18 12:48 BP 169/91 10/06/18 12:48 Pulse Ox 99 10/06/18 12:48 Intake & Output 10/06/18 10/07/18 10/07/18 18:59 06:59 18:59 Weight 54.431 kg PQRS Measure Charge Sheet Measure #130: Documentation of Current Meds in Medical Chart: Patient's medications documented in chart Measure #226: Tobacco Use: Screen & Cessation Intervention: Pt not a tobacco user Measure #111: Pneumonia Vaccination: Pneumococcal vaccine NOT administered or previously given Measure #47: Advance Care Plan: Advance care planning discussed & documented, pt chose/unable to give Measure #412: Opioid Treatment Agreement: Documented signed opioid trtmnt agreemnt min once during opioid trtmnt Measure #408: Opioid Therapy Follow-up Evaluation: Patient had f/u eval minimum every 3 months during opioid therapy Measure #317: Preventitive Care & Scrn High Bld Press & F/U: Pre-hypertensive or hypertensive BP documented, pt will f/u with PCP Measure #128: Body Mass Index (BMI) Screening & Follow-up: BMI documented within normal parameters Measure #131: Pain Assessment & Follow-up: Pain positive & plan documented, Follow-up scheduled Measure #431: Unhealthy Alcohol Use Preventative Care & Scrn: Patient not identified as an unhealthy alcohol user PQRS Narrative: Smoking Status Never smoker Narcotic Agreement Date Signed 10/06/18 Blood Pressure 169/91 Pain Intensity [Right Jaw] 3 Scale Used Numeric (1 - 10) Hx Alcohol Use (MH) Yes: SOCIAL Home Medications: Ambulatory Orders Hydrocortisone [Cortef] 10 mg PO DIRECTED 09/25/13 Hydrocortisone [Cortef] 7.5 mg PO BID 09/23/16 Levothyroxine Sodium [Synthroid] 50 mcg PO SUTUTHSA 06/12/17 Multivitamins, Thera [Multivitamin (formulary)] 1 tab PO DAILY 06/12/17 Albuterol Inhaler [Ventolin Hfa Inhaler] 1 - 2 puff INHALATION RT-Q6H PRN 08/27/17 Cholecalciferol [Vitamin D3] 5,000 unit PO DAILY 08/27/17 Levothyroxine Sodium [Synthroid] 75 mcg PO MOWEFR 08/27/17 Baclofen 1 tab PO HS 11/19/17 Ibuprofen [Motrin] 600 mg PO Q8HR PRN 12/12/17 oxyCODONE HCL/ACETAMINOPHEN [Percocet 10-325 mg] 1 tab PO Q6HR PRN 01/09/18 Hydroxychloroquine Sulfate [Plaquenil] 200 mg PO BID 02/24/18 Ondansetron [Zofran] 4 mg PO DIRECTED 06/16/18 Controlled Substance Measures - Controlled Substance Measures Is patient prescribed a controlled substance at discharge?: Yes When asked, does pt state using other controlled substances?: No If prescribed controlled substance>3 days was MAPS reviewed?: Yes If Rx opioid, was Start Talking consent form obtained?: Yes If opioid is for acute pain is fill amount 7 days or less?: No Was information provided regarding opioid addiction?: Yes
== END | disposition home or self-care (01) ==
CPT/HCPCS: 99211

== ENCOUNTER → 2018-12-01 | Outpatient (CLI) | payer BC ==
[2018-12-01 12:31] VITALS: BP 152/94; PULSE 98; RESP 16
--- NOTE | 2018-12-01 15:21 | P.PAINPG ---
Subjective Progress Note Date: 12/01/18 This is follow-up visit for this 33-year-old female presents today with a chief complaint of right shoulder pain. On jaw pain secondary to avascular necrosis of the jaw on the shoulder She's had this right shoulder pain for many years. She is status post total shoulder replacement about 7 years ago. She continues to have pain which began little over a year ago. She reports her pain is causing her significant amount discomfort and limitation with range of motion. She has a history of adrenal insufficiency as well. She reports she is scheduled to have reverse total shoulder done in November of this year. She is using Percocet 3-4 times a day as needed. She denies any side effects from the current medications. She also uses baclofen and a TENS unit as needed. She was also naproxen alternating with Motrin, when necessary, causing some abdominal discomfort She also undergoes acupuncture every 6-8 weeks with some benefit. She reports a TENS unit is significantly improving her spasm pain. Spasms are primarily located in her upper back and posterior shoulder on the right side. Today, she is inquiring about trigger point injections. She is also following with rheumatology at [facility], the etiology of avascular necrosis is undetermined at this point, the patient has been diagnosed with lupus in the past. She reports that the steroids which she takes for adrenal insufficiency are currently being weaned in preparation for surgery. 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 She is unable to go back to full-time nursing due to right shoulder pain. She has 3 children at home age 5, 3, 2. She was experiencing significant benefit from physical therapy, however has stopped physical therapy recently due to needing to save sessions for her after her surgery. Review of systems is negative for chest pain, shortness of breath, new onset weakness, numbness/tingling, abdominal pain, malaise, fever, night sweats, chills, homicidal or suicidal ideation, or bowel or bladder incontinence. Objective - Vital Signs Vital signs: Vital Signs Temp Pulse 98 12/01/18 12:25 Resp 16 12/01/18 12:25 BP 152/94 12/01/18 12:25 Pulse Ox 98 12/01/18 12:25 - Exam Physical Examinations : 1-Constitutiona : Cooperative , not in acute distress . 2-HEENT : nech ; supple , no Lymphadenopathy , normal thyroid size . eyes : no ptosis , no icterus, no photophobia . ENT : normal of hearing , normal oropharynx , no Thrush . 3- Respiratory : Chest clear to auscultations Bilaterally , no wheezing , no Rhonchi . 4- Cardiovascular : regular rate and rhythem , S1 , S2 , no S3 , no S4. 5- Gastrointestinal : abdomen soft no tenderness , bowel sounds , no organomegally . 6- Genitourinary : Defferred . 7- neurologic : Cranial nerve II to XII intact , no focal neurological deffecit . 8-psychatric : alert , oriented X 3 , appropriate aff ect , intact judgment and insight . 9-Lymphatic : no Lymphadenopathy . 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 Long discussion with the patient regarding the dose of these medications and using them appropriately. We discussed that these medications will not be continued long-term, plan will be to wean her off narcotics following her shoulder surgery in November. She is amenable to this plan. We'll continue to monitor the patient for signs of misuse, we'll check maps and continue do urine drug screens as needed. She has children home and discussed with her the need to make sure that the medications are safe an she keeps them locked up. We will also schedule bilateral trigger point injections at cervical paraspinals, rhomboids, trapezius muscles. We will plan on avoiding steroid in these injections, as she is working on weaning her steroids which he takes for adrenal insufficiency prior to her surgery. Advised the patient to take pxeg-[id number] magnesium oxide 400 mg daily to relieve spasms. Follow-up: For procedure and in 2 month's time for medication review Prescription refill for Percocet 10/325 every 6 hours when necessary dispense 120 with one refill baclofen 10 mg daily at bedtime dispense 30 with 1 refill and recommend discontinuing naproxen discontinue Motrin because patient had stomach upset from it patient could benefit from Mobic 7.5 mg daily when necessary PQRS Measure Charge Sheet Measure #130: Documentation of Current Meds in Medical Chart: Patient's medications documented in chart Measure #226: Tobacco Use: Screen & Cessation Intervention: Pt not a tobacco user Measure #111: Pneumonia Vaccination: Pneumococcal vaccine NOT administered or previously given Measure #47: Advance Care Plan: Advance care planning discussed & documented, pt chose/unable to give Measure #412: Opioid Treatment Agreement: Documented signed opioid trtmnt agreemnt min once during opioid trtmnt Measure #408: Opioid Therapy Follow-up Evaluation: Patient had f/u eval minimum every 3 months during opioid therapy Measure #317: Preventitive Care & Scrn High Bld Press & F/U: Pre-hypertensive or hypertensive BP documented, pt will f/u with PCP Measure #128: Body Mass Index (BMI) Screening & Follow-up: BMI documented within normal parameters Measure #131: Pain Assessment & Follow-up: Pain positive & plan documented, Follow-up scheduled Measure #431: Unhealthy Alcohol Use Preventative Care & Scrn: Patient not identified as an unhealthy alcohol user PQRS Narrative: Smoking Status Never smoker Narcotic Agreement Date Signed 10/06/18 Blood Pressure 152/94 Pain Intensity [Right Shoulder 5 ] Scale Used Numeric (1 - 10) Hx Alcohol Use (MH) Yes: SOCIAL Home Medications: Ambulatory Orders Hydrocortisone [Cortef] 10 mg PO DAILY 09/25/13 Hydrocortisone [Cortef] 7.5 mg PO BID 09/23/16 Levothyroxine Sodium [Synthroid] 50 mcg PO SUTUTHSA 06/12/17 Multivitamins, Thera [Multivitamin (formulary)] 1 tab PO DAILY 06/12/17 Albuterol Inhaler [Ventolin Hfa Inhaler] 1 - 2 puff INHALATION RT-Q6H PRN 08/27/17 Cholecalciferol [Vitamin D3] 5,000 unit PO DAILY 08/27/17 Levothyroxine Sodium [Synthroid] 75 mcg PO MOWEFR 08/27/17 Baclofen 1 tab PO HS 11/19/17 oxyCODONE HCL/ACETAMINOPHEN [Percocet 10-325 mg] 1 tab PO Q6HR PRN 01/09/18 Hydroxychloroquine Sulfate [Plaquenil] 200 mg PO BID 02/24/18 Ondansetron [Zofran] 4 mg PO Q6H PRN 06/16/18 Meloxicam [Mobic] 7.5 mg PO DAILY 12/01/18 Controlled Substance Measures - Controlled Substance Measures Is patient prescribed a controlled substance at discharge?: Yes When asked, does pt state using other controlled substances?: No If prescribed controlled substance>3 days was MAPS reviewed?: Yes If Rx opioid, was Start Talking consent form obtained?: Yes If opioid is for acute pain is fill amount 7 days or less?: No Was information provided regarding opioid addiction?: Yes
== END ==
LOC: PNWHC3 12:07
PROVIDERS: ATTEND Specialist
DX: M87.811 Other osteonecrosis, right shoulder (principal); M27.2 Inflammatory conditions of jaws; Z79.891 Long term (current) use of opiate analgesic; Z79.899 Other long term (current) drug therapy; Z79.1 Long term (current) use of non-steroidal anti-inflammatories (NSAID)
CPT/HCPCS: 99211

== ENCOUNTER → 2019-01-27 | Outpatient (CLI) | payer BC ==
[2019-01-27 12:06] VITALS: RESP 18
[2019-01-27 12:07] VITALS: BP 126/86; PULSE 108
--- NOTE | 2019-01-27 12:27 | P.PAINPG ---
Subjective Progress Note Date: 01/27/19 This is a 33-year-old female who is well-known to our clinic who returns for follow-up after her right shoulder replacement. She's had this right shoulder pain for several years, she had a shoulder replacement about 7 years ago, she's been prescribed [place] by her clinic which has been helping her pain. The takes baclofen and Mobic which also help with her pain. After her surgery we did give her 30 extra tablets to cover acute pain, he continues to have some slight acute pain, but the pain is resolving. She does also have a possible history of lupus, she does have several children at home. He denies any side effects from the medications, however when she took her Percocet 2 at a time, she did have some nausea, now she is spacing out her Percocet and does not have any side effects. She has a history of steroid use for adrenal insufficiency, so we have not use steroids in her most recent procedures. Objective - Vital Signs Vital signs: Vital Signs Temp Pulse 108 H 01/27/19 12:06 Resp 18 01/27/19 12:06 BP 126/86 01/27/19 12:06 Pulse Ox 100 01/27/19 12:06 - Exam Vital Signs: Reviewed in EMR GENERAL: Well appearing, in no acute distress, her right arm is immobilized PSYCH: Mood and affect is appropriate. Awake, alert, and oriented SKIN: Skin color, texture, turgor normal, no rashes or lesions HEENT: Normocephalic, atraumatic. EOM intact CV: No pedal edema RESP: Respirations are unlabored, no audible wheezing GI: Abdomen non-distended MUSCULOSKELETAL: Right arm is immobilized in a sling, she is moving her left arm freely NEUR: No loss of sensation is noted. Cranial nerves are grossly intact. Assessment and Plan Assessment: Assessment: 1. Previous right shoulder avascular necrosis, now status post right shoulder replacement 2. Muscular spasms 3. Chronic opiate use Plan: 1. Explanation: Opioid and psychological risk scores were reviewed. Diagnoses, prognoses, and multiple treatment options including but not limited to physical therapy, interventional therapies, adjuvant medical therapies, narcotic medication therapies, and surgery were discussed with the patient and all questions were answered to the patient's satisfaction. 2. Opioid agreement: A new one was placed 3. Counseling: Spoke to the patient about hopefully coming off her opiate medications, after she has healed from surgery, thus at the next visit, we will talk to her about decreasing her opiate medications. 4. Procedures: None at this time 5. Consultations: None 6. Investigations: Ordered today 7. Medications: I refilled her Percocet, baclofen, and Mobic. She does have a urine drug screen at than the past year, so we ordered a UDS. I ordered also ordered lidocaine patch, to help with her acute postoperative pain. She is open to discussing weaning her opiates at next visit. 8. Disposition: 8 Weeks , PQRS Measure Charge Sheet Measure #226: Tobacco Use: Screen & Cessation Intervention: Pt not a tobacco user Measure #111: Pneumonia Vaccination: Pneumococcal vaccine NOT administered or previously given Measure #47: Advance Care Plan: Advance care planning discussed & documented, pt chose/unable to give Measure #412: Opioid Treatment Agreement: Documented signed opioid trtmnt agreemnt min once during opioid trtmnt Measure #408: Opioid Therapy Follow-up Evaluation: Patient had f/u eval minimum every 3 months during opioid therapy Measure #131: Pain Assessment & Follow-up: Pain positive & plan documented, Follow-up scheduled Measure #431: Unhealthy Alcohol Use Preventative Care & Scrn: Patient not identified as an unhealthy alcohol user PQRS Narrative: Smoking Status Never smoker Narcotic Agreement Date Signed 01/27/19 Blood Pressure 126/86 Pain Intensity [Right Shoulder 5 ] Scale Used Numeric (1 - 10) Hx Alcohol Use (MH) No Home Medications: Ambulatory Orders Hydrocortisone [Cortef] 10 mg PO QAM 09/25/13 Hydrocortisone [Cortef] 7.5 mg PO 1200,1500 09/23/16 Levothyroxine Sodium [Synthroid] 50 mcg PO SUTUTHSA 06/12/17 Multivitamins, Thera [Multivitamin (formulary)] 1 tab PO DAILY 06/12/17 Albuterol Inhaler [Ventolin Hfa Inhaler] 1 - 2 puff INHALATION Q6HR PRN 08/27/17 Cholecalciferol [Vitamin D3] 5,000 unit PO DAILY 08/27/17 Levothyroxine Sodium [Synthroid] 75 mcg PO MOWEFR 08/27/17 oxyCODONE HCL/ACETAMINOPHEN [Percocet 10-325 mg] 1 - 2 tab PO Q4-6H PRN 01/09/18 Hydroxychloroquine Sulfate [Plaquenil] 200 mg PO BID 02/24/18 Ondansetron [Zofran] 4 mg PO Q6H PRN 06/16/18 Meloxicam [Mobic] 7.5 mg PO DAILY 12/01/18 Baclofen 10 mg PO HS 01/21/19 Controlled Substance Measures - Controlled Substance Measures Is patient prescribed a controlled substance at discharge?: Yes When asked, does pt state using other controlled substances?: No If prescribed controlled substance>3 days was MAPS reviewed?: Yes Was information provided regarding opioid addiction?: No
== END | disposition home or self-care (01) ==
LOC: PNWHC3 11:52
PROVIDERS: ATTEND Student in an Organized Health Care Education/Training Program
DX: M87.811 Other osteonecrosis, right shoulder (principal); M62.838 Other muscle spasm; Z79.899 Other long term (current) drug therapy; Z79.891 Long term (current) use of opiate analgesic; Z79.890 Hormone replacement therapy
CPT/HCPCS: 80307; 99211; G0482

== ENCOUNTER → 2019-02-17 | Outpatient (CLI) | payer BC ==
[2019-02-17 11:43] VITALS: BP 157/108; PULSE 125; RESP 20
--- NOTE | 2019-02-17 12:25 | P.PN ---
Progress Note - Text Progress Note Date: 02/17/19 This is follow-up visit for this 33-year-old female presents today with a chief complaint of right shoulder pain. and jaw pain secondary to avascular necrosis of the jaw on the shoulder She's had this right shoulder pain for many years. She is status post total shoulder replacement about 7 years ago. She continues to have pain which began little over a year ago. She reports her pain is causing her significant amount discomfort and limitation with range of motion. She has a history of adrenal insufficiency as well. She reports she is scheduled to have reverse total shoulder done in November of this year. She is using Percocet 3-4 times a day as needed. Patient had urine drug screen done last visit and it was positive for hydrocodone , and it is negative for oxycodone, And also the urine drug screen was negative for any metabolites of oxycodone, patient denies that he using any different medication than the medication that was prescribed to her, and she is blaming either the pharmacy for the lab that they hadn't state, and she is insists on repeating the urine drug screen, I told the patient that I will not give her any prescription because of violation of the contract when the pain clinic, urine drug screen ordered today
== END | disposition home or self-care (01) ==
LOC: PNWHC3 11:05
PROVIDERS: ATTEND Specialist
DX: M25.511 Pain in right shoulder (principal); M27.2 Inflammatory conditions of jaws; Z96.611 Presence of right artificial shoulder joint; Z86.39 Personal history of other endocrine, nutritional and metabolic disease
CPT/HCPCS: 80307; 99211; G0482

== ENCOUNTER 2023-04-16 01:33 | Emergency (ER) | payer BC ==
[2023-04-16 02:06] VITALS: RESP 20; TEMP 98
[2023-04-16] MEDS ORDERED: levETIRAcetam 500 MG TAB PO STA (02:31)
[2023-04-16] MEDS ORDERED: LABETALOL 200 MG TAB PO STA (02:45)
--- NOTE | 2023-04-16 02:54 | ED ---
Medical Clearance HPI - General Chief complaint: Medical Clearance Stated complaint: medical clearance for residential Time Seen by Provider: 04/16/23 01:58 Source: police Mode of arrival: ambulatory - History of Present Illness Initial comments: 37-year-old female with a past medical history significant for multiple endocrine neoplasia and pheochromocytoma presenting with for medical clearance for residential as she normally takes Keppra 500 mg twice daily and labetalol 50 mg twice daily however has not had her nightly doses of both of these. Patient at this time has no complaints. Denies chest pain, palpitations, shortness of breath. No other complaints. Home medications: Home Medications Medication Instructions Recorded Confirmed Hydrocortisone [Cortef] 10 mg PO QAM 09/25/13 02/17/19 Hydrocortisone [Cortef] 7.5 mg PO 1200,1500 09/23/16 02/17/19 Levothyroxine Sodium [Synthroid] 50 mcg PO SUTUTHSA 06/12/17 02/17/19 Multivitamins, Thera [Multivitamin 1 tab PO DAILY 06/12/17 02/17/19 (formulary)] Albuterol Inhaler [Ventolin Hfa 1 - 2 puff INHALATION Q6HR PRN 08/27/17 02/17/19 Inhaler] Cholecalciferol [Vitamin D3] 5,000 unit PO DAILY 08/27/17 02/17/19 Levothyroxine Sodium [Synthroid] 75 mcg PO MOWEFR 08/27/17 02/17/19 oxyCODONE HCL/ACETAMINOPHEN 1 - 2 tab PO Q4-6H PRN 01/09/18 02/17/19 [Percocet 10-325 mg] Hydroxychloroquine Sulfate 200 mg PO BID 02/24/18 02/17/19 [Plaquenil] Ondansetron [Zofran] 4 mg PO Q6H PRN 06/16/18 02/17/19 Meloxicam [Mobic] 7.5 mg PO DAILY 12/01/18 02/17/19 Baclofen 10 mg PO HS 01/21/19 02/17/19 Lidocaine 5% Patch [Lidoderm] 1 patch TOPICAL DAILY 02/17/19 02/17/19 Allergies/Adverse reactions: Allergies Allergy/AdvReac Type Severity Reaction Status Date / Time venom-honey bee Allergy Severe Anaphylaxis Verified 04/16/23 01:53 [bee venom (honey bee)] Review of Systems ROS Statement: Those systems with pertinent positive or pertinent negative responses have been documented in the HPI. ROS Other: All systems not noted in ROS Statement are negative. Past Medical History Past Medical History: Asthma, Osteoarthritis (OA), Thyroid Disorder Additional Past Medical History / Comment(s): adrenal insufficiency, right hydronephrosis with kidney stone, pituitary tumor, hx migraines, lupus, AV ASCULAR NECROSIS rt shoulder. History of Any Multi-Drug Resistant Organisms: Other MDRO Past Surgical History: Appendectomy, Cholecystectomy, Joint Replacement Additional Past Surgical History / Comment(s): right total shoulder, PAIN CLINIC PROCEDURES, reconstruction of jaw from avascular necrosis Past Anesthesia/Blood Transfusion Reactions: Motion Sickness Additional Past Anesthesia/Blood Transfusion Reaction / Comment(s): elevated parathyroid levels currently Past Psychological History: No Psychological Hx Reported Smoking Status: Never smoker Past Alcohol Use History: Rare Past Drug Use History: None Reported - Past Family History Father Family Medical History: Cancer Additional Family Medical History / Comment(s): melanoma General Exam Limitations: no limitations General appearance: alert, in no apparent distress Eye exam: Present: normal appearance Neck exam: Present: normal inspection Respiratory exam: Present: normal lung sounds bilaterally Cardiovascular Exam: Present: regular rate, normal rhythm GI/Abdominal exam: Present: soft Neurological exam: Present: alert, oriented X3 Skin exam: Present: warm, dry Course Vital Signs 04/16/23 04/16/23 01:51 03:01 Temperature 98 F Pulse Rate 115 H 90 Respiratory 20 20 Rate Blood Pressure 160/96 144/84 O2 Sat by Pulse 100 100 Oximetry Medical Decision Making - Medical Decision Making Was pt. sent in by a medical professional or institution (, PA, MANAGER MENTAL HEALTH, urgent care, hospital, or shelter...) When possible be specific @ -Brought in by Police Department for medical clearance Did you speak to anyone other than the patient for history (EMS, parent, family, police, friend...)? What history was obtained from this source @ -No Did you review nursing and triage notes (agree or disagree)? Why? @ -I reviewed and agree with nursing and triage notes Were old charts reviewed (outside hosp., previous admission, EMS record, old EKG, old radiological studies, urgent care reports/EKG's, shelter records)? Report findings @ -No old charts were reviewed Differential Diagnosis (chest pain, altered mental status, abdominal pain women, abdominal pain men, vaginal bleeding, weakness, fever, dyspnea, syncope, headache, dizziness, GI bleed, back pain, seizure, CVA, palpatations, mental health, musculoskeletal)? @ -Not applicable EKG interpreted by me (3pts min.). @ -None X-rays interpreted by me (1pt min.). @ -None done CT interpreted by me (1pt min.). @ -None done U/S interpreted by me (1pt. min.). @ -None done What testing was considered but not performed or refused? (CT, X-rays, U/S, labs)? Why? @ -None What meds were considered but not given or refused? Why? @ -None Did you discuss the management of the patient with other professionals (professionals i.e. , PA, MANAGER MENTAL HEALTH, lab, RT, psych nurse, transition social worker, balancing machine operator, teacher, bomb squad officer, correctional case manager)? Give summary @ -No Was smoking cessation discussed for >3mins.? @ -No Was critical care preformed (if so, how long)? @ -No Were there social determinants of health that impacted care today? How? (Homelessness, low income, unemployed, alcoholism, drug addiction, transportation, low edu. Level, literacy, decrease access to med. care, residential, rehab)? @ -No Was there de-escalation of care discussed even if they declined (Discuss DNR or withdrawal of care, Hospice)? DNR status @ -No What co-morbidities impacted this encounter? (DM, HTN, Smoking, COPD, CAD, Cancer, CVA, ARF, Chemo, Hep., AIDS, mental health diagnosis, sleep apnea, morbid obesity)? @ -None Was patient admitted / discharged? Hospital course, mention meds given and route, prescriptions, significant lab abnormalities, going to OR and other pertinent info. @ -Discharge 37-year-old female brought to the ED by the police department for medical clearance as she has not had her nightly doses of Keppra and labetalol. Patient provided those doses here. Additionally, patient noted that she has prescription for Nayzilam 5mg as needed however notes that they will not allow her to use this while in residential as she just brought the nasal spray and is missing the prescription information attaching it to her name and needs a prescription in order to use this while in residential if needed. Maps reviewed. Patient was prescribed a quantity of 4 Nayzilam 5mg nasal spray on 03/26/2023. Provided prescription stating that the patient is indeed prescribed this medication. At this time basic laboratory studies including CBC, CMP unremarkable. Patient medically clear for residential. At this time vital signs stable afebrile. Undiagnosed new problem with uncertain prognosis? @ -No Drug Therapy requiring intensive monitoring for toxicity (Heparin, Nitro, Insulin, Cardizem)? @ -No Were any procedures done? @ -No Diagnosis/symptom? @ -Medical clearance Acute, or Chronic, or Acute on Chronic? @ -Acute Uncomplicated (without systemic symptoms) or Complicated (systemic symptoms)? @ -Uncomplicated Side effects of treatment? @ -No Exacerbation, Progression, or Severe Exacerbation? @ -No Poses a threat to life or bodily function? How? (Chest pain, [place], MA, pneumonia, PE, COPD, DKA, ARF, appy, cholecystitis, CVA, Diverticulitis, Homicidal, Suicidal, threat to staff... and all critical care pts) @ -No - Lab Data Result diagrams: 04/16/23 02:23 04/16/23 02:23 Lab Results 04/16/23 04/16/23 Range/Units 02:23 02:23 WBC 8.9 (3.8-10.6) k/uL RBC 4.11 (3.80-5.40) m/uL Hgb 13.6 (11.4-16.0) gm/dL Hct 40.0 (34.0-46.0) % MCV 97.3 (80.0-100.0) fL MCH 33.0 (25.0-35.0) pg MCHC 33.9 (31.0-37.0) g/dL RDW 14.8 (11.5-15.5) % Plt Count 289 (150-450) k/uL MPV 8.0 Neutrophils % 81 % Lymphocytes % 12 % Monocytes % 4 % Eosinophils % 1 % Basophils % 1 % Neutrophils # 7.3 (1.3-7.7) k/uL Lymphocytes # 1.1 (1.0-4.8) k/uL Monocytes # 0.3 (0-1.0) k/uL Eosinophils # 0.1 (0-0.7) k/uL Basophils # 0.1 (0-0.2) k/uL Sodium 140 (137-145) mmol/L Potassium 4.9 (3.5-5.1) mmol/L Chloride 106 (98-107) mmol/L Carbon Dioxide 23 (22-30) mmol/L Anion Gap 11 mmol/L BUN 12 (7-17) mg/dL Creatinine 0.82 (0.52-1.04) mg/dL Est GFR (CKD-EPI)AfAm >90 (>60 ml/min/1.73 sqM) Est GFR (CKD-EPI)NonAf >90 (>60 ml/min/1.73 sqM) Glucose 74 (74-99) mg/dL Calcium 9.6 (8.4-10.2) mg/dL Total Bilirubin 0.4 (0.2-1.3) mg/dL AST 21 (14-36) U/L ALT 16 (4-34) U/L Alkaline Phosphatase 82 (38-126) U/L Total Protein 7.2 (6.3-8.2) g/dL Albumin 4.3 (3.5-5.0) g/dL Disposition Clinical Impression: Medical clearance for incarceration Disposition: HOME SELF-CARE Condition: Good Is patient prescribed a controlled substance at d/c from ED?: No Referrals: Josafat Baldwin DO [Primary Care Provider] - 1-2 days Time of Disposition: 03:38
[2023-04-16 03:19] LABS: Basophils # (A) 0.1 k/uL (0-0.2); Basophils % (A) 1 %; Eosinophils # (A) 0.1 k/uL (0-0.7); Eosinophils % (A) 1 %; HGB 13.6 gm/dL (11.4-16.0); Lymphocytes # (A) 1.1 k/uL (1.0-4.8); Lymphocytes % (A) 12 %; MCHC 33.9 g/dL (31.0-37.0); MCV 97.3 fL (80.0-100.0); Monocytes # (A) 0.3 k/uL (0-1.0); Monocytes % (A) 4 %; Neutrophils # (A) 7.3 k/uL (1.3-7.7); Neutrophils % (A) 81 %; Platelet Count 289 k/uL (150-450); RBC 4.11 m/uL (3.80-5.40); RDW 14.8 % (11.5-15.5); WBC 8.9 k/uL (3.8-10.6)
[2023-04-16 03:24] VITALS: BP 144/84; PULSE 90
[2023-04-16 03:28] LABS: ALT 16 U/L (4-34); AST 21 U/L (14-36); African American GFR (CKD) >90 (>60 ml/min/1.73 sqM); Albumin 4.3 g/dL (3.5-5.0); Alkaline Phosphatase 82 U/L (38-126); Anion Gap 11 mmol/L; Blood Urea Nitrogen 12 mg/dL (7-17); Calcium 9.6 mg/dL (8.4-10.2); Carbon Dioxide 23 mmol/L (22-30); Chloride 106 mmol/L (98-107); Glucose 74 mg/dL (74-99); Non-African American GFR(CKD) >90 (>60 ml/min/1.73 sqM); Potassium 4.9 mmol/L (3.5-5.1); Sodium 140 mmol/L (137-145); Total Bilirubin 0.4 mg/dL (0.2-1.3); Total Protein 7.2 g/dL (6.3-8.2)
== END 2023-04-16 04:04 | disposition home or self-care (01) ==
LOC: EC 01:33
DX: J45.909 Unspecified asthma, uncomplicated; M19.90 Unspecified osteoarthritis, unspecified site; E07.9 Disorder of thyroid, unspecified; Z79.890 Hormone replacement therapy; Z79.899 Other long term (current) drug therapy; Z91.030 Bee allergy status
CPT/HCPCS: 36415; 80053; 85025; 99283